=== PATIENT | female | born 1970 | race Caucasian/White ===

== ENCOUNTER 2021-02-03 08:11 | Outpatient (REF) | payer OTHER, SELFPAY ==
--- NOTE | ~2021-02-03 | MM_ITS ---
EXAMINATION: MM SCREENING DIGITAL BREAST TOMOSYNTHESIS, BILATERAL CLINICAL INFORMATION: Screening. Asymptomatic. The lifetime risk of breast cancer based on the Tyrer-Cuzick Model is 22%. COMPARISON: Mammography: 01/30/2020, 01/31/2018, 11/30/2016 TECHNIQUE: Digital breast tomosynthesis is performed in both the craniocaudal and mediolateral oblique views along with computer-aided detection (CAD). Synthesized 2D images are generated from the tomosynthesis. FINDINGS: The breasts are heterogeneously dense, which may obscure small masses (ACR BI-RADS breast composition Category c). There are no significant masses, abnormal calcifications, or other abnormalities. Breast tissue composition borders on average fibroglandular. Parenchymal pattern is similar to prior studies. No developing density. No architectural abnormality. There is a biopsy clip marker overlying stable nodule again seen posterior 11:30 left breast. MM/MM tomosynthesis screening BI IMPRESSION: No mammographic evidence of malignancy. ASSESSMENT: BI-RADS 2: Benign RECOMMENDATION: 1. Routine annual mammography screening. 2. The lifetime risk of breast cancer based on the Tyrer-Cuzick Model is 22%. Additional annual adjunct screening with breast MRI may be of benefit in women with a risk score of 20% or greater. This patient's information was entered into a reminder system with a target due date for their next mammogram.
== END 2021-02-03 08:12 | disposition home or self-care (01) ==
LOC: HO.MAMMO 08:11
PROVIDERS: PCP Internal Medicine Geriatric Medicine; Visit Provider Internal Medicine Geriatric Medicine
DX: Z12.31 Encounter for screening mammogram for malignant neoplasm of breast (principal)
CPT/HCPCS: 77063; 77067

== ENCOUNTER → 2021-07-21 13:43 | Outpatient (BNVA) | payer OTHER, SELFPAY | PROVIDERS: PCP Internal Medicine Geriatric Medicine; Referring Provider Internal Medicine Geriatric Medicine; Visit Provider Physician Assistant | DX: Z12.11 Encounter for screening for malignant neoplasm of colon (principal); L40.9 Psoriasis, unspecified | CPT/HCPCS: 99202 ==

== ENCOUNTER 2021-09-08 07:19 | Day surgery (SDC) | payer OTHER, SELFPAY ==
[2021-08-31 14:05] VITALS: BMI 31.8
--- NOTE | 2021-09-03 11:53 | HO.ANESPROP2 ---
Documented by User: Elana Chen NP 09/03/21 11:53 HPI - Anesthesia Eval Consult details Narrative: 51yo F for Colonoscopy PMFSH Active Problems Active Problems: All Active Problems (Updated 08/31/21 @ 14:05 by Vickie Perez, MARLA) Encounter for screening colonoscopy (Acute) Psoriasis (Acute) Poor historian (Acute) Past Medical History Medical History Psoriasis Family History Family History Sister Breast cancer Daughter Thyroid cancer Surgical History Surgical History No pertinent past surgical history Social History Social History Patient Tobacco Use Status: Tobacco use Unknown Advance Directives: No Advance Directives Information Provided: Yes Advance Directives on File: No Meds Allergies Allergy/AdvReac Type Severity Reaction Status Date / Time No Known Allergies Allergy Verified 07/21/21 13:46 Exam Exam Date and Time: September 03, 2021 1153 Height,Weight and Vital Signs: Height 5 ft 3 in Weight 81.647 kg Assessment and Plan Assessment Anesthesia Assessment: Chart Reviewed Documented by User: Angelica Walker MD 09/08/21 08:44 PMFSH Past Medical History Medical History Psoriasis Family History Family History Sister Breast cancer Daughter Thyroid cancer Surgical History Surgical History No pertinent past surgical history History of Problems with Anesthesia: No Social History Social History Patient Tobacco Use Status: Tobacco use Unknown Advance Directives: No Advance Directives Information Provided: Yes Advance Directives on File: No Meds Allergies Allergy/AdvReac Type Severity Reaction Status Date / Time No Known Allergies Allergy Verified 07/21/21 13:46 Exam Airway Mallampati Class: II TM Dist: >3cm Neck ROM: Full Loose/Missing/Broken Teeth: No Heart: RRR Lungs: CTA Assessment and Plan Assessment Anesthesia Assessment: Anesthesia Plan Discussed Final Anesthetic Review History of Problems with Anesthesia: No NPO: Yes ASA Class: II Final Preanesthetic Review: Meds/Allgs Chart Reviewed, Consent Obtained/Reviewed and Anes Risks/Benef Reviewed Patient Risk: Low Procedure Risk: Low Anesthetic Plan Anesthetic Plan: MAC: Disposition: Standard PACU
[2021-09-08 07:51] VITALS: BP 142/74; PULSE 62; RESP 18; TEMP 36.9; O2SAT 98
[2021-09-08 07:55] LABS: UPreg QC Valid YES; Urine Pregnancy NEGATIVE (NEGATIVE)
[2021-09-08] MEDS: Lactated Ringers 1,000 ML 100 ML IVCONT (08:12)
--- NOTE | 2021-09-08 08:27 | MHC.SHP ---
Pre-Procedural Eval Section A Date of Service: 09/08/21 Section B Chief Complaint: screening Relevant Family History (Specify if Yes): No Relevant Social History: None Present Medications: see Short Stay Collaborative assessment Medical History: Significant History (Psoriasis) History of Previous Operations: No relevant previous surgery Allergies: Allergies Allergy/AdvReac Type Severity Reaction Status Date / Time No Known Allergies Allergy Verified 07/21/21 13:46 Review of Systems Sugical H&P ROS: Negative: Constitution, Cardiovascular, Respiratory, Neurological, Psychiatric, Hem-Onc, Allergic/Immunologic, Gastrointestinal, Genitourinary, Musculoskeletal, Integumentary, Endocrine and Eyes/Ears/Nose/Throat Exam Surgical H&P Exam: Normal: HEENT, Normal: Heart, Normal: Lungs, Normal: Extremities, Normal: Abdomen, Normal: Skin and Normal: Neurological Plan Diagnosis/Plan: Unchanged I have reviewed the history and physical and performed a pertinent physical examination on my patient. No changes have occurred unless specified.
--- NOTE | 2021-09-08 08:28 | P.BOP_ITS ---
Brief Operative Note Date of Service: 09/08/21 Pre-op diagnosis: colon screening Post-op diagnosis: same Procedure: see op note Surgeon: Samuel Yi MD Anesthesia: MAC Was an Inner Diameter Grinder Tool used for this Procedure?: No Estimated blood loss (mL): 0 Condition: stable Disposition: PACU
--- NOTE | 2021-09-08 08:28 | W.PM.OPN ---
Operative Note Operative Note Date of Service: 09/08/21 Narrative: Operative Information Procedure Description: Colonoscopy Indication: screening colonoscopy Anesthesia: MAC COLONOSCOPY Instrument: Olympus variable stiffness pediatric scope 190L Colonoscopy Monitoring: Vital signs and clinical assessment, continuous EKG monitoring, Pulse oximetry, Carbon Dioxide monitoring and blood pressure monitoring were done throughout the procedure. Colon withdrawal time was 10 minutes. Procedure: The patient was placed in the left lateral decubitis position and pre-procedure medications were administered. After a digital rectal examination of the ano-rectum, the video colonoscope was inserted into the rectum and advanced through the colon to the cecum/TI. The colonoscope was slowly withdrawn in a retrograde panoramic fashion and the colon mucosa was carefully examined including a retroflexed view of the rectum. Findings and interventions are described below. Procedure Difficulty: moderate due to tight sigmoid Findings: Terminal Ileum-normal Cecum:normal Ascending Colon: normal Transverse Colon -normal Descending Colon:normal Sigmoid Colon: moderate diverticulosis with hypertrophied folds Rectum: Retroflexion with small internal hemorrhoids, grade I Anorectum - normal Colon preparation: [place] Bowel Preparation Scale Right colon; 1 Transverse colon: 2 Left colon; 1 (0 = Unprepared colon segment with mucosa not seen due to solid stool that cannot be cleared. 1 = Portion of mucosa of the colon segment seen, but other areas of the colon segment not well seen due to staining, residual stool and/or opaque liquid. 2 = Minor amount of residual staining, small fragments of stool and/or opaque liquid, but mucosa of colon segment seen well. 3 = Entire mucosa of colon segment seen well with no residual staining, small fragments of stool or opaque liquid) Impression and Post Procedure Diagnosis: poor prep internal hemorrhoids diverticulosis Plan: High fiber diet leaflet Avoid straining at stool, epsom salts and sitz bath, anusol supps or cream Repeat Colonoscopy in 1 year or earlier if clinically indicated review prep compliance and instructions,. Above findings were reviewed with the patient and relevant handouts were provided if indicated.
[2021-09-08 08:58] VITALS: BP 103/49; PULSE 59; RESP 20; TEMP 36.3; O2SAT 99
[2021-09-08 09:13] VITALS: BP 125/68; PULSE 58; RESP 16; TEMP 36.3; O2SAT 99
== END 2021-09-08 09:56 | disposition home or self-care (01) ==
PROVIDERS: Nurse Practitioner; PCP Internal Medicine Geriatric Medicine; Visit Provider Internal Medicine Gastroenterology
PROC: 0DJD8ZZ Inspection of Lower Intestinal Tract, Via Natural or Artificial Opening Endoscopic (ICD-10-PCS; CPT 45378; principal; 2021-09-08 08:30)
DX: Z12.11 Encounter for screening for malignant neoplasm of colon (principal); K57.30 Diverticulosis of large intestine without perforation or abscess without bleeding; K64.0 First degree hemorrhoids; L40.9 Psoriasis, unspecified; Z78.9 Other specified health status
CPT/HCPCS: 45378; 81025

== ENCOUNTER 2022-02-16 09:19 | Outpatient (REF) | payer OTHER, SELFPAY ==
--- NOTE | ~2022-02-16 | MM_ITS ---
EXAMINATION: MM SCREENING DIGITAL BREAST TOMOSYNTHESIS, BILATERAL CLINICAL INFORMATION: Screening. Asymptomatic. Family history breast cancer, sister. The lifetime risk of breast cancer based on the Tyrer-Cuzick Model is 15%. COMPARISON: Mammography: 02/03/2021, 01/30/2020, 01/31/2018 TECHNIQUE: Digital breast tomosynthesis is performed in both the craniocaudal and mediolateral oblique views along with computer-aided detection (CAD). Synthesized 2D images are generated from the tomosynthesis. FINDINGS: The breasts are heterogeneously dense, which may obscure small masses (ACR BI-RADS breast composition Category c). Breast tissue composition borders on average fibroglandular. Parenchymal pattern is similar to prior studies. No developing density. There are no significant masses, abnormal calcifications, or other abnormalities. There is a biopsy clip marker overlying small stable nodule posterior 11:30 left breast. MM/MM tomosynthesis screening BI IMPRESSION: No mammographic evidence of malignancy. ASSESSMENT: BI-RADS 2: Benign RECOMMENDATION: Routine annual mammography screening. This patient's information was entered into a reminder system with a target due date for their next mammogram.
== END 2022-02-16 09:20 | disposition home or self-care (01) ==
LOC: HO.MAMMO 09:19
PROVIDERS: Visit Provider Internal Medicine Geriatric Medicine
DX: Z12.31 Encounter for screening mammogram for malignant neoplasm of breast (principal)
CPT/HCPCS: 77063; 77067

== ENCOUNTER 2022-11-30 11:26 | Outpatient (REF) | payer OTHER, SELFPAY ==
[2022-11-30 14:20] LABS: Alanine Aminotransferase 22 U/L (0-31); Alkaline Phosphatase 86 U/L (39-117); Anion Gap 14 (12-20); Aspartate Amino Transferase 21 U/L (5-31); Bilirubin Total 0.8 mg/dL (0.0-1.0); Blood Urea Nitrogen 10 mg/dL (9-16); Calcium 9.5 mg/dL (8.4-10.2); Carbon Dioxide 24 mmol/L (22-29); Chloride 105 mmol/L (96-108); Estimated Glomerular Filt Rate > 60; Glucose Random 101 mg/dL (60-115); Potassium 3.9 mmol/L (3.3-5.1); Sodium 139 mmol/L (135-145); Total Protein 7.1 g/dL (6.5-8.0)
[2022-11-30 14:33] LABS: HBsAGNum1 0.37 S/CO (0.00-0.99); Hepatitis B Surface Antigen Negative (Negative)
[2022-12-02 12:53] LABS: HCV Log PCR <1.18 NOT DETECTED Log IU/mL (NOT DETECTED); HepC Viral Load <15 NOT DETECTED IU/mL (NOT DETECTED)
== END 2022-11-30 11:27 | disposition home or self-care (01) ==
LOC: HO.HHCL 11:26
PROVIDERS: Visit Provider Internal Medicine Geriatric Medicine
DX: R73.9 Hyperglycemia, unspecified (principal); L40.9 Psoriasis, unspecified; E78.00 Pure hypercholesterolemia, unspecified
CPT/HCPCS: 36415; 80053; 87340; 87522

== ENCOUNTER 2022-12-07 10:18 | Outpatient (REF) | payer OTHER, SELFPAY ==
[2022-12-07 11:34] LABS: MANUAL DIFF FLAG NO
[2022-12-07 11:46] LABS: Basophils Percent Auto 0.3 % (0-2); Eosinophils Absolute Auto 0.1 X10*3/uL (0.0-0.4); Eosinophils Percent Auto 1.6 % (0-4); Hematocrit 41.5 % (37.0-47.0); Hemoglobin 13.9 g/dl (12.0-16.0); Imm Gran Abs Auto 0.01 X10*3/uL (0.00-0.03); Imm Gran Pct Auto 0.2 % (0.0-0.4); Lymphocytes Absolute Auto 2.2 X10*3/uL (1.2-4.9); Lymphocytes Percent Auto 35.5 % (20-40); Mean Corpuscular HGB Conc 33.5 g/dl (31.0-35.0); Mean Corpuscular Hemoglobin 30.2 pg (27.0-33.0); Mean Corpuscular Volume 90.2 fL (80.0-98.0); Mean Platelet Volume 10.3 fL (9.4-12.3); Monocytes Absolute Auto 0.5 X10*3/uL (0.1-1.2); Monocytes Percent Auto 8.5 % (2-11); Neutrophils Absolute Auto 3.4 x10*3/uL (2.0-8.3); Neutrophils Percent Auto 53.9 % (45-73); Platelet Count 277 X10*3/uL (160-400); Red Cell Distribution Width 12.4 % (11.0-16.0); White Blood Count 6.3 X10*3/uL (4.8-10.8)
== END 2022-12-07 10:19 | disposition home or self-care (01) ==
LOC: HO.HHCL 10:18
PROVIDERS: Visit Provider Internal Medicine Geriatric Medicine
DX: R73.9 Hyperglycemia, unspecified (principal); L40.9 Psoriasis, unspecified; E78.00 Pure hypercholesterolemia, unspecified
CPT/HCPCS: 36415; 85025

== ENCOUNTER 2023-02-22 09:22 | Outpatient (REF) | payer OTHER, SELFPAY ==
--- NOTE | ~2023-02-22 | MM_ITS ---
EXAMINATION: MM SCREENING DIGITAL BREAST TOMOSYNTHESIS, BILATERAL CLINICAL INFORMATION: Screening. Asymptomatic. COMPARISON: Mammography: This study is compared with prior exams dating back to 2017. TECHNIQUE: Digital breast tomosynthesis is performed in both the craniocaudal and mediolateral oblique views along with computer-aided detection (CAD). Synthesized 2D images are generated from the tomosynthesis. FINDINGS: There are scattered areas of fibroglandular density (ACR BI-RADS breast composition Category b). There are no significant masses, abnormal calcifications, or other abnormalities. There is a tissue marker present in the left breast from prior benign percutaneous biopsy. MM/MM tomosynthesis screening BI IMPRESSION: No mammographic evidence of malignancy. ASSESSMENT: BI-RADS BI-RADS 2 - Benign Findings RECOMMENDATION: Routine annual mammography screening. 1 year F/U This examination should not preclude the clinical evaluation of a suspicious palpable abnormality. This patient's information was entered into a reminder system with a target due date for their next mammogram.
== END 2023-02-22 09:23 | disposition home or self-care (01) ==
LOC: HO.MAMMO 09:22
PROVIDERS: PCP Internal Medicine Geriatric Medicine; Visit Provider Internal Medicine Geriatric Medicine
DX: Z12.31 Encounter for screening mammogram for malignant neoplasm of breast (principal)
CPT/HCPCS: 77063; 77067

== ENCOUNTER → 2023-02-22 09:30 | Outpatient (BNV) | payer OTHER, SELFPAY | PROVIDERS: PCP Internal Medicine Geriatric Medicine; Visit Provider Radiology Diagnostic Radiology | DX: Z12.31 Encounter for screening mammogram for malignant neoplasm of breast (principal) | CPT/HCPCS: 77063; 77067 ==

== ENCOUNTER 2023-08-02 11:28 | Outpatient (REF) | payer OTHER, SELFPAY ==
[2023-08-02 13:14] LABS: MANUAL DIFF FLAG NO
[2023-08-02 13:36] LABS: Basophils Percent Auto 0.3 % (0-2); Eosinophils Absolute Auto 0.1 X10*3/uL (0.0-0.4); Eosinophils Percent Auto 1.7 % (0-4); Hematocrit 41.2 % (37.0-47.0); Hemoglobin 14.2 g/dl (12.0-16.0); Imm Gran Abs Auto 0.02 X10*3/uL (0.00-0.03); Imm Gran Pct Auto 0.3 % (0.0-0.4); Lymphocytes Absolute Auto 2.2 X10*3/uL (1.2-4.9); Lymphocytes Percent Auto 34.4 % (20-40); Mean Corpuscular HGB Conc 34.5 g/dl (31.0-35.0); Mean Corpuscular Hemoglobin 30.1 pg (27.0-33.0); Mean Corpuscular Volume 87.5 fL (80.0-98.0); Mean Platelet Volume 10.2 fL (9.4-12.3); Monocytes Absolute Auto 0.6 X10*3/uL (0.1-1.2); Monocytes Percent Auto 8.5 % (2-11); Neutrophils Absolute Auto 3.5 x10*3/uL (2.0-8.3); Neutrophils Percent Auto 54.8 % (45-73); Platelet Count 287 X10*3/uL (160-400); Red Blood Count 4.71 X10*6/uL (4.20-5.50); Red Cell Distribution Width 12.9 % (11.0-16.0); White Blood Count 6.5 X10*3/uL (4.8-10.8)
[2023-08-02 13:59] LABS: Alanine Aminotransferase 23 U/L (0-31); Albumin Level 4.1 g/dL (3.5-5.0); Alkaline Phosphatase 95 U/L (39-117); Anion Gap 10 (12-20); Aspartate Amino Transferase 18 U/L (5-31); Bilirubin Total 0.4 mg/dL (0.0-1.0); Blood Urea Nitrogen 9 mg/dL (9-16); Calcium 9.5 mg/dL (8.4-10.2); Carbon Dioxide 28 mmol/L (22-29); Chloride 105 mmol/L (96-108); Cholesterol 172 mg/dL (<200); Estimated Glomerular Filt Rate > 60; Glucose Random 122 mg/dL (60-115); HDL Cholesterol 48 mg/dL (>40); LDL Cholesterol Calculated 107 mg/dL (<100); Potassium 4.2 mmol/L (3.3-5.1); Sodium 139 mmol/L (135-145); Total Protein 7.5 g/dL (6.5-8.0); Triglycerides 86 mg/dL (<150)
[2023-08-02 15:00] LABS: Estimated Average Glucose 131 mg/dL; Hemoglobin A1c % 6.2 % (<6.0)
[2023-08-05 07:13] LABS: TS Negative Control Passed; TS Panel A 3; TS Panel B 0; TS Positive Control Passed; TSpotTB Negative (Negative)
== END 2023-08-02 11:29 | disposition home or self-care (01) ==
LOC: HO.HHCL 11:28
PROVIDERS: Visit Provider Internal Medicine Geriatric Medicine
DX: E11.9 Type 2 diabetes mellitus without complications (principal); L40.0 Psoriasis vulgaris; Z79.899 Other long term (current) drug therapy
CPT/HCPCS: 36415; 80053; 80061; 83036; 85025; 86481

== ENCOUNTER 2023-08-30 10:03 | Outpatient (AMB) | payer OTHER, SELFPAY ==
--- NOTE | 2023-08-30 10:09 | A.OFFVIS_ITS ---
Intake Vital Signs 08/30/23 10:12 Height 5 ft 3 in Weight 193 lb BMI 34.2 BP 140/100 H Blood Pressure Location Lt brachial Position Sitting Pulse 71 Intake Visit Reasons: Due for repeat colonoscopy Intake Note: Patient follow up for 2nd pre colonoscopy screening Patient denies any GI issues. 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 Testing Name: [facility] [place] Interpeter Accompanied by: Self / Same As Patient Allergies No Known Allergies Allergy (Verified 08/30/23 10:08) Medication List - Last Reconciled 08/30/23 by Chiquita Lance PA-C atorvastatin 20 mg PO BEDTIME bisacodyl (Dulcolax (bisacodyl)) 10 mg (2 x 5 mg) PO ONCE 1 day polyethylene glycol 3350 (Miralax) 238 grams PO ONCE 1 day HPI HPI Comments History of Present Illness Details 53-year-old female here to discuss repea t colonoscopy-last colonoscopy 09/10 inadequate prep recommended 1 year repeat colonoscopy due to inadequate prep- she admits to a late start She has no GI complaint Normal bowel pattern Appetite is good Reviewed previous colonoscopy= Impression and Post Procedure Diagnosis: poor prep internal hemorrhoids diverticulosis Plan: High fiber diet leaflet Avoid straining at stool, epsom salts and sitz bath, anusol supps or cream Repeat Colonoscopy in 1 year or earlier if clinically indicated review prep compliance and instructions,. Above findings were reviewed with the patient and relevant handouts were provided if indicated. Dictated By: Samuel Yi MD Signed By: <Electronically signed by Samuel Yi MD> 09/08/21 0857 [facility] Medical History (Updated 08/30/23 @ 10:46 by Chiquita Lance PA-C) Psoriasis Surgical History No pertinent past surgical history Family History Sister Breast cancer Daughter Thyroid cancer Social History Patient Tobacco Use Status: Tobacco use Unknown Review of Systems Const All systems reviewed & are unremarkable except as noted in HPI and below Card Denies chest pain and Denies dyspnea Resp Denies dyspnea GI Denies abdominal pain and Reports constipation Physical Exam Vital Signs: Last Vital Signs Pulse 71 08/30/23 10:12 BP 140/100 H 08/30/23 10:12 BMI result Body Mass Index 34.2 Const General: cooperative, healthy appearing, comfortable, no acute distress and anxious Orientation/consciousness: patient oriented x3 Limitations: language barrier Resp Effort & Inspection: normal respiratory effort and able to speak in complete sentences Auscultation: clear to auscultation bilaterally, no rales, no rhonchi and no wheezes Cardio Rate: regular rate Rhythm: regular rhythm Heart sounds: S1 normal heart sound present and S2 normal heart sound present GI Inspection: Yes obesity Palpation (GI): Soft to palpation and nontender Auscultation: normal bowel sounds Skin General skin exam: no rashes or lesions noted Neuro General: patient oriented x3 Extrem General: Yes full ROM Psych Appearance: grossly normal and well kempt Mental Status: mental status grossly normal Speech and movement: Normal speech and movement present and Clear speech present Affect: normal affect Attitude: cooperative Thought process: Normal thought process present Thought content: Normal thought content present Insight: Good insight present (Psych) Judgement: Good judgement present (Psych) Assessment & Plan Assessment & Plan (1) History of colonoscopy: Code(s): Z98.890 - Other specified postprocedural states Plan: repeat colonoscopy (2) Diverticulosis: Code(s): K57.90 - Diverticulosis of intestine, part unspecified, without perforation or abscess without bleeding Plan: HFD ER protocol (3) Chronic constipation: Code(s): K59.09 - Other constipation Plan: consistent bowel regimen HFD Plan Repeat colon- Yi MG prep miralax QD x 1 wk< prep day Medications: New bisacodyl (Dulcolax (bisacodyl)) Day before procedure @ 12 noon Take 4 tablets by mouth followed by large glass of water 20 mg (4 x 5 mg) PO ONCE 1 day PRN 4 tabs 0RF colonoscopy prep Z12.11 - Encounter for screening for malignant neoplasm of colon polyethylene glycol 3350 (Miralax) 17 grams PO DAILY 30 days 510 grams 2RF Refilled bisacodyl (Dulcolax (bisacodyl)) Take 2 tablets by mouth at 12:00pm the day before your procedure. 10 mg (2 x 5 mg) PO ONCE 1 day 2 tabs 0RF colonoscopy prep Z12.11 - Encounter for screening for malignant neoplasm of colon polyethylene glycol 3350 (Miralax) Take as directed by mouth the day before your procedure. 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
[2023-08-30 10:12] VITALS: BP 140/100; PULSE 71; BMI 34.2
== END 2023-08-30 11:06 | disposition home or self-care (01) ==
PROVIDERS: PCP Internal Medicine Geriatric Medicine; Visit Provider Physician Assistant
DX: Z98.890 Other specified postprocedural states (principal); K57.90 Diverticulosis of intestine, part unspecified, without perforation or abscess without bleeding; K59.09 Other constipation
CPT/HCPCS: 99213

== ENCOUNTER → 2023-08-30 10:03 | Outpatient (BNVA) | payer OTHER, SELFPAY | PROVIDERS: PCP Internal Medicine Geriatric Medicine; Visit Provider Physician Assistant | DX: K57.90 Diverticulosis of intestine, part unspecified, without perforation or abscess without bleeding (principal); K59.09 Other constipation; Z98.890 Other specified postprocedural states | CPT/HCPCS: 99212 ==

== ENCOUNTER 2024-01-03 09:44 | Day surgery (SDC) | payer OTHER, SELFPAY ==
--- NOTE | 2024-01-02 11:36 | HO.ANESPROP2 ---
Documented by User: Elana Chen NP 01/02/24 11:36 HPI - Anesthesia Eval Consult details Narrative: 53yo F for Colonoscopy PMFSH Active Problems Active Problems: All Active Problems Chronic constipation (Acute) Diverticulosis (Acute) History of colonoscopy (Acute) Poor historian (Acute) Psoriasis (Acute) Encounter for screening colonoscopy (Acute) Past Medical History Medical History Psoriasis Family History Family History Sister Breast cancer Daughter Thyroid cancer Surgical History Surgical History No pertinent past surgical history History of Problems with Anesthesia: No Social History Social History Patient Tobacco Use Status: Never used Tobacco Use of substances other than those prescribed or required for medical reasons: No Are you DNR?: No Advance Directives: No Advance Directives Information Provided: Yes Meds Allergies Allergy/AdvReac Type Severity Reaction Status Date / Time No Known Allergies Allergy Verified 08/30/23 10:08 Home Medications ?Medication ?Instructions ?Recorded ?Confirmed ?Last Taken ?Type atorvastatin 20 mg tablet 20 mg PO BEDTIME 08/30/23 08/30/23 Unknown History Assessment and Plan Assessment Anesthesia Assessment: Chart Reviewed Final Anesthetic Review History of Problems with Anesthesia: No Documented by User: Dinorah Hanks MD 01/03/24 10:55 PMFSH Past Medical History Medical History Psoriasis Family History Family History Sister Breast cancer Daughter Thyroid cancer Family history of problems with anesthesia: No Surgical History Surgical History No pertinent past surgical history Social History Social History Patient Tobacco Use Status: Never used Tobacco Use of substances other than those prescribed or required for medical reasons: No Are you DNR?: No Advance Directives: No Advance Directives Information Provided: Yes Meds Allergies Allergy/AdvReac Type Severity Reaction Status Date / Time No Known Allergies Allergy Verified 08/30/23 10:08 Home Medications ?Medication ?Instructions ?Recorded ?Confirmed ?Last Taken ?Type atorvastatin 20 mg tablet 20 mg PO BEDTIME 08/30/23 08/30/23 Unknown History Exam Airway Mallampati Class: II TM Dist: >3cm Neck ROM: Full Heart: rrr Lungs: cta Assessment and Plan Assessment Anesthesia Assessment: Anesthesia Plan Discussed Final Anesthetic Review Family History of Problems with Anesthesia: No NPO: Yes ASA Class: II Final Preanesthetic Review: No Changes in Pt Med Stat, Meds/Allgs Chart Reviewed and Consent Obtained/Reviewed Patient Risk: Low Procedure Risk: Low Anesthetic Plan Anesthetic Plan: MAC: Disposition: Standard PACU
[2024-01-03 10:18] VITALS: BMI 33.7
--- NOTE | 2024-01-03 10:19 | MHC.SHP ---
Pre-Procedural Eval Section A - 24 Hr Update-Section A only Date of Service: 01/03/24 Section B - Complete if H&P > 30 days Chief Complaint: Constipation, unspecified Relevant Family History (Specify if Yes): No Relevant Social History: None Present Medications: see Short Stay Collaborative assessment Medical History: Significant History (Psoriasis) History of Previous Operations: Relevant previous surgery/procedure and date(s) (colonoscopy) Allergies: Allergies Allergy/AdvReac Type Severity Reaction Status Date / Time No Known Allergies Allergy Verified 08/30/23 10:08 Review of Systems Sugical H&P ROS: Negative: Constitution, Cardiovascular, Respiratory, Neurological, Psychiatric, Hem-Onc, Allergic/Immunologic, Gastrointestinal, Genitourinary, Musculoskeletal, Integumentary, Endocrine and Eyes/Ears/Nose/Throat Exam Surgical H&P Exam: Normal: HEENT, Normal: Heart, Normal: Lungs, Normal: Extremities, Normal: Abdomen, Normal: Skin and Normal: Neurological Plan Diagnosis/Plan: Unchanged I have reviewed the history and physical and performed a pertinent physical examination on my patient. No changes have occurred unless specified. Time Spent With Patient Time: Total time managing care of this patient today ____ minutes.
[2024-01-03 10:20] VITALS: BP 145/80; PULSE 82; RESP 16; TEMP 37.2; O2SAT 96
[2024-01-03] MEDS: Lactated Ringers 1,000 ML 100 ML IVCONT (10:35)
--- NOTE | 2024-01-03 11:24 | HO.OPN-COLON ---
Colonoscopy Operative Note Operative Note Date of Service: 01/03/24 Narrative: Operative Information Procedure Description: Colonoscopy Indication: screening Anesthesia: MAC COLONOSCOPY Instrument: Olympus variable stiffness pediatric scope 190L Colonoscopy Monitoring: Vital signs and clinical assessment, continuous EKG monitoring, Pulse oximetry, Carbon Dioxide monitoring and blood pressure monitoring were done throughout the procedure. Colon withdrawal time was 10 minutes. Procedure: The patient was placed in the left lateral decubitis position and pre-procedure medications were administered. After a digital rectal examination of the ano-rectum, the video colonoscope was inserted into the rectum and advanced through the colon to the cecum/TI. The colonoscope was slowly withdrawn in a retrograde panoramic fashion and the colon mucosa was carefully examined including a retroflexed view of the rectum. Findings and interventions are described below. Procedure Difficulty: moderate, pressure applied Findings: Terminal Ileum-normal Cecum:normal right sided retroflexion- normal Ascending Colon: normal Transverse Colon -normal Descending Colon:normal Sigmoid Colon: moderate diverticulosis Rectum: Retroflexion with small internal hemorrhoids seen, grade I Anorectum - normal Intervention: none Colon preparation: [place] Bowel Preparation Scale Right colon; 2 Transverse colon: 2 Left colon; 2 (0 = Unprepared colon segment with mucosa not seen due to solid stool that cannot be cleared. 1 = Portion of mucosa of the colon segment seen, but other areas of the colon segment not well seen due to staining, residual stool and/or opaque liquid. 2 = Minor amount of residual staining, small fragments of stool and/or opaque liquid, but mucosa of colon segment seen well. 3 = Entire mucosa of colon segment seen well with no residual staining, small fragments of stool or opaque liquid) Impression and Post Procedure Diagnosis: diverticulosis colon polyps internal hemorrhoids Plan: High fiber diet leaflet Avoid straining at stool, epsom salts and sitz bath, anusol supps or cream Repeat Colonoscopy in 10 years or earlier if clinically indicated Above findings were reviewed with the patient and relevant handouts were provided if indicated.
[2024-01-03 11:28] VITALS: BP 121/77; PULSE 74; RESP 16; TEMP 36.3; O2SAT 97
[2024-01-03 11:43] VITALS: BP 139/80; PULSE 66; RESP 16; TEMP 36.3; O2SAT 99
== END 2024-01-03 12:17 | disposition home or self-care (01) ==
PROVIDERS: PCP Internal Medicine Geriatric Medicine; Visit Provider Internal Medicine Gastroenterology
PROC: 0DJD8ZZ Inspection of Lower Intestinal Tract, Via Natural or Artificial Opening Endoscopic (ICD-10-PCS; CPT 45378; principal; 2024-01-03 12:00)
DX: K59.09 Other constipation (principal); K57.30 Diverticulosis of large intestine without perforation or abscess without bleeding; K64.0 First degree hemorrhoids; L40.9 Psoriasis, unspecified; Z79.899 Other long term (current) drug therapy; Z98.890 Other specified postprocedural states
CPT/HCPCS: 45378; J2704

== ENCOUNTER → 2024-01-03 09:44 | Outpatient (BNV) | payer OTHER, SELFPAY | PROVIDERS: PCP Internal Medicine Geriatric Medicine; Visit Provider Internal Medicine Gastroenterology | DX: Z12.11 Encounter for screening for malignant neoplasm of colon (principal); K57.30 Diverticulosis of large intestine without perforation or abscess without bleeding; K64.0 First degree hemorrhoids | CPT/HCPCS: 45378 ==

== ENCOUNTER 2024-01-31 11:59 | Outpatient (REF) | payer OTHER, SELFPAY ==
[2024-01-31 13:45] LABS: MANUAL DIFF FLAG NO
[2024-01-31 14:05] LABS: Basophils Percent Auto 0.2 % (0-2); Eosinophils Absolute Auto 0.1 X10*3/uL (0.0-0.4); Eosinophils Percent Auto 1.8 % (0-4); Hematocrit 39.8 % (37.0-47.0); Hemoglobin 13.7 g/dl (12.0-16.0); Imm Gran Abs Auto 0.03 X10*3/uL (0.00-0.03); Imm Gran Pct Auto 0.5 % (0.0-0.4); Lymphocytes Absolute Auto 2.4 X10*3/uL (1.2-4.9); Lymphocytes Percent Auto 39.7 % (20-40); Mean Corpuscular HGB Conc 34.4 g/dl (31.0-35.0); Mean Corpuscular Volume 87.3 fL (80.0-98.0); Mean Platelet Volume 10.2 fL (9.4-12.3); Monocytes Absolute Auto 0.4 X10*3/uL (0.1-1.2); Monocytes Percent Auto 7.2 % (2-11); Neutrophils Absolute Auto 3.1 x10*3/uL (2.0-8.3); Neutrophils Percent Auto 50.6 % (45-73); Platelet Count 248 X10*3/uL (160-400); Red Blood Count 4.56 X10*6/uL (4.20-5.50); Red Cell Distribution Width 12.7 % (11.0-16.0); White Blood Count 6.1 X10*3/uL (4.8-10.8)
[2024-01-31 14:25] LABS: Estimated Average Glucose 146 mg/dL; Hemoglobin A1c % 6.7 % (<6.0)
[2024-01-31 14:26] LABS: Appearance Urine Clear; Color Urine Yellow; Glucose Urine UA Negative (Negative); Leukocyte Esterase Urine Negative (Negative); Nitrite Urine Negative (Negative); PH 5.5 (5.0-9.0); Urine Blood Negative (Negative); Urine Ketones Negative (Negative); Urine Protein Negative (Neg-Trace)
[2024-01-31 14:46] LABS: Alanine Aminotransferase 60 U/L (0-31); Albumin Level 4.3 g/dL (3.5-5.0); Alkaline Phosphatase 106 U/L (39-117); Anion Gap 13 (12-20); Aspartate Amino Transferase 28 U/L (5-31); Bilirubin Total 0.6 mg/dL (0.0-1.0); Blood Urea Nitrogen 10 mg/dL (9-16); Calcium 9.4 mg/dL (8.4-10.2); Carbon Dioxide 25 mmol/L (22-29); Chloride 107 mmol/L (96-108); Cholesterol 184 mg/dL (<200); Estimated Glomerular Filt Rate > 60; Glucose Random 134 mg/dL (60-115); HDL Cholesterol 42 mg/dL (>40); LDL Cholesterol Calculated 123 mg/dL (<100); Potassium 3.8 mmol/L (3.3-5.1); Sodium 141 mmol/L (135-145); Total Protein 7.5 g/dL (6.5-8.0); Triglycerides 96 mg/dL (<150)
[2024-01-31 14:48] LABS: Bacteria Urine Trace (None Seen); Hyaline Casts Urine 0-2 /LPF (0-2); RBC Urine 0-2 /HPF (0-2); WBC Urine 0-5 /HPF (0-5)
[2024-01-31 15:02] LABS: Creatinine Urine 179.64 mg/dL; Microalbum/Creatinine Ratio Ur 6.6 ug/mg cr (<30)
== END 2024-01-31 12:00 | disposition home or self-care (01) ==
LOC: HO.HHCL 11:59
PROVIDERS: Visit Provider Internal Medicine Geriatric Medicine
DX: R10.11 Right upper quadrant pain (principal); E11.9 Type 2 diabetes mellitus without complications; G89.29 Other chronic pain
CPT/HCPCS: 36415; 80053; 80061; 81001; 82043; 82570; 83036; 85025

== ENCOUNTER 2024-02-28 09:45 | Outpatient (REF) | payer OTHER, SELFPAY ==
--- NOTE | ~2024-02-28 | MM_ITS ---
EXAMINATION: MM SCREENING DIGITAL BREAST TOMOSYNTHESIS, BILATERAL CLINICAL INFORMATION: Screening. Asymptomatic. COMPARISON: Mammography: Comparison is made with available priors TECHNIQUE: Digital breast mammography with tomosynthesis is performed in both the craniocaudal and mediolateral oblique views along with computer-aided detection (CAD). FINDINGS: The breasts are heterogeneously dense, which may obscure small masses (ACR BI-RADS breast composition Category c). Right: There are no significant masses, abnormal calcifications, or other abnormalities. Left: Asymmetry lateral breast middle to posterior depth on CC view. No suspicious calcifications or other abnormal findings. Marker clip. MM/MM tomosynthesis screening BI IMPRESSION: Additional imaging is recommended ASSESSMENT: BI-RADS BI-RADS 0 - Incomplete: Needs additional Imaging. RECOMMENDATION: 1. Additional views of the left breast 2. Targeted ultrasound if warranted after review of the additional views. 3. Radiology department staff will contact the patient for additional imaging. Additional Imaging required This examination should not preclude the clinical evaluation of a suspicious palpable abnormality. This patient's information was entered into a reminder system with a target due date for their next mammogram. Electronically signed by: Nunu Mckinley DO 03/11/2024 05:57 PM EDT
== END 2024-02-28 09:46 | disposition home or self-care (01) ==
LOC: HO.MAMMO 09:45
PROVIDERS: PCP Internal Medicine Geriatric Medicine; Visit Provider Internal Medicine Geriatric Medicine
DX: Z12.31 Encounter for screening mammogram for malignant neoplasm of breast (principal)
CPT/HCPCS: 77063; 77067

== ENCOUNTER → 2024-02-28 09:45 | Outpatient (BNV) | payer OTHER, SELFPAY | PROVIDERS: PCP Internal Medicine Geriatric Medicine; Visit Provider Internal Medicine | DX: Z12.31 Encounter for screening mammogram for malignant neoplasm of breast (principal) | CPT/HCPCS: 77063; 77067 ==

== ENCOUNTER 2024-03-13 09:57 | Outpatient (REF) | payer OTHER, SELFPAY ==
--- NOTE | ~2024-03-13 | US_ITS ---
EXAMINATION: MM DIAGNOSTIC DIGITAL BREAST TOMOSYNTHESIS, left breast CLINICAL INFORMATION: Call back from screening for left breast asymmetry. COMPARISON: Mammography: Prior relevant comparison images and her system. TECHNIQUE: Digital breast tomosynthesis is performed in both the craniocaudal and mediolateral oblique views along with computer-aided detection (CAD). Synthesized 2D images are generated from the tomosynthesis. FINDINGS: There are scattered areas of fibroglandular density (ACR BI-RADS breast composition Category b). Previously seen asymmetry in the lateral left breast posterior depth on CC view partially effaces on additional imaging projections. There are no other significant masses, abnormal calcifications, or other abnormalities. Targeted color Doppler left breast ultrasound scanning from 1-5 o'clock demonstrates an incidental simple cyst at 2:00 1 cm from the nipple measuring 6 mm. There is incidental simple cyst at 2:00 10 cm from the nipple measuring up to 3 mm. Otherwise scanning from 1-5 o'clock demonstrates normal fibroglandular breast tissue. US/US breast LT limited mamm only IMPRESSION: Asymmetry lateral left breast posterior depth on CC view without sonographic correlate. Recommend 6 month follow-up left breast mammogram for further evaluation of stability. ASSESSMENT: BI-RADS BI-RADS 3 - Probably benign finding(s) - 6 month follow-up suggested RECOMMENDATION: 6 Month F/U Results were discussed with the patient at time of visit. This patient's information was entered into a reminder system with a target due date for their next mammogram. Electronically signed by: Nunu Mckinley DO 03/13/2024 01:24 PM EDT
== END 2024-03-13 09:58 | disposition home or self-care (01) ==
LOC: HO.MAMMO 09:57
PROVIDERS: PCP Internal Medicine Geriatric Medicine; Visit Provider Internal Medicine Geriatric Medicine
DX: N64.89 Other specified disorders of breast (principal)
CPT/HCPCS: 76642; 77061; 77065

== ENCOUNTER → 2024-03-13 10:00 | Outpatient (BNV) | payer OTHER, SELFPAY | PROVIDERS: PCP Internal Medicine Geriatric Medicine; Visit Provider Internal Medicine | DX: N63.21 Unspecified lump in the left breast, upper outer quadrant (principal) | CPT/HCPCS: 76642; 77061; 77065 ==

== ENCOUNTER 2024-04-02 11:32 | Outpatient (REF) | payer OTHER, SELFPAY ==
[2024-04-02 14:30] LABS: Anion Gap 13 (12-20); Blood Urea Nitrogen 11 mg/dL (9-16); Calcium 9.6 mg/dL (8.4-10.2); Carbon Dioxide 24 mmol/L (22-29); Chloride 106 mmol/L (96-108); Estimated Glomerular Filt Rate > 60; Glucose Random 132 mg/dL (60-115); Potassium 3.9 mmol/L (3.3-5.1); Sodium 139 mmol/L (135-145)
== END 2024-04-02 11:33 | disposition home or self-care (01) ==
LOC: HO.HHCL 11:32
PROVIDERS: Visit Provider Internal Medicine Geriatric Medicine
DX: R10.11 Right upper quadrant pain (principal); G89.29 Other chronic pain
CPT/HCPCS: 36415; 80048

== ENCOUNTER 2024-04-10 05:53 | Outpatient (REF) | payer OTHER, SELFPAY ==
--- NOTE | ~2024-04-10 | CT_ITS ---
EXAMINATION: CT ABDOMEN AND PELVIS WITH CONTRAST CLINICAL INFORMATION: Status post hysterectomy, complains of chronic right lower quadrant abdominal pain COMPARISON: None available. TECHNIQUE: Multidetector volumetric images were obtained from the superior aspect of the liver through the pubic symphysis following administration 85 mL of Omnipaque 350 intravenous contrast. Sagittal and coronal reformatted images were obtained on the technologist's workstation. Oral contrast: Yes, [address] examination was performed using dose optimization techniques as appropriate, variously including the following: *Automated exposure control *Adjustment of mA and/or kV according to patient size (this includes techniques or standardized protocols for targeted exams where dose is matched to indication/reason for exam; i.e. extremities or head) *Use of iterative reconstruction technique DLP: 574 mGy-cm FINDINGS: LUNG BASES: Bilateral lung bases are clear. LIVER: No focal lesion is seen in the liver. GALLBLADDER AND BILIARY TREE: Gallbladder appears unremarkable without calcified stones. Common bile duct is not dilated. SPLEEN: The spleen is normal in size without focal lesion. PANCREAS: The pancreas appears unremarkable. ADRENAL GLANDS: Adrenal glands are normal in size without focal lesion bilaterally. KIDNEYS: Bilateral kidneys are normal in size without focal lesion. BOWELS: There is normal filling of the small bowel loops with oral contrast down to the terminal ileum and cecum. RETROPERITONEUM: No abnormally enlarged retroperitoneal lymph nodes, mass or hematoma could be seen. BLOOD VESSELS: Abdominal aorta is normal in size with scattered atherosclerotic calcifications and smoothly patent. ABDOMINAL WALL: Abdominal subcutaneous tissue and muscle are intact. No evidence of ventral hernia. PERITONEUM: There was no ascites. There were no abdominal peritoneal inflammatory changes seen. No free peritoneal air was seen. No abnormally enlarged mesenteric lymph nodes are found. BONES: No fracture or dislocation. No focal bone lesion diagnostic of metastatic disease could be seen in the lumbar region. EXAMINATION: CT pelvis. FINDINGS: URINARY BLADDER: Urinary bladder fills normally with urine. BOWELS: There is no abnormal dilatation of the large and small bowel loops. Normal air-filled appendix is seen projecting medial and superior to the cecum. GENITAL ORGANS: Several right adnexal calcifications up to 1.1 cm in diameter are seen. Left ovarian cyst measuring 3.0 x 1.5 cm in size is present. The uterus is surgically absent. LYMPH NODES: No abnormally enlarged iliac or inguinal lymph nodes are seen. PERITONEUM: No inflammatory changes, ascites or free peritoneal air are found in the pelvis. BONES: No fracture or dislocation. No focal bone lesion diagnostic of metastatic disease could be seen in the pelvis. CT/CT abdomen pelvis w IV con IMPRESSION: 1. No evidence of acute appendicitis. 2. No intestinal or colonic obstruction or abdominal inflammation or pneumoperitoneum is seen. 3. Status post hysterectomy. 4. No pelvic mass lesion, abscess or lymphadenopathy is seen. 5. Left ovarian cyst is seen. Findings are overwhelmingly likely to represent a benign functional cyst and no followup imaging recommended. Fleischner guidelines were followed. Electronically signed by: Marnie Hester MD 05/01/2024 10:23 AM TERRENCE
[2024-04-10] MEDS: Barium Sulfate Oral (Vanilla) 450 ML ORAL.SUSP 900 ML PO (08:41)
[2024-04-10] MEDS: iohexoL 350 MG/ML 100 ML INFUS..BTL 85 ML IV (08:41)
== END 2024-04-10 05:54 | disposition home or self-care (01) ==
LOC: HO.CT 05:53
PROVIDERS: PCP Internal Medicine Geriatric Medicine; Visit Provider Internal Medicine Geriatric Medicine
DX: R10.11 Right upper quadrant pain (principal); G89.29 Other chronic pain
CPT/HCPCS: 74177; Q9967

== ENCOUNTER 2024-05-20 12:42 | Outpatient (REF) | payer OTHER, SELFPAY ==
[2024-05-20 13:10] LABS: MANUAL DIFF FLAG NO
[2024-05-20 13:21] LABS: Basophils Percent Auto 0.4 % (0-2); Eosinophils Absolute Auto 0.1 X10*3/uL (0.0-0.4); Eosinophils Percent Auto 1.4 % (0-4); Hematocrit 38.9 % (37.0-47.0); Hemoglobin 13.4 g/dl (12.0-16.0); Imm Gran Abs Auto 0.01 X10*3/uL (0.00-0.03); Imm Gran Pct Auto 0.2 % (0.0-0.4); Lymphocytes Absolute Auto 2.2 X10*3/uL (1.2-4.9); Lymphocytes Percent Auto 38.2 % (20-40); Mean Corpuscular HGB Conc 34.4 g/dl (31.0-35.0); Monocytes Absolute Auto 0.5 X10*3/uL (0.1-1.2); Monocytes Percent Auto 9.1 % (2-11); Neutrophils Absolute Auto 2.9 x10*3/uL (2.0-8.3); Neutrophils Percent Auto 50.7 % (45-73); Platelet Count 252 X10*3/uL (160-400); Red Blood Count 4.47 X10*6/uL (4.20-5.50); Red Cell Distribution Width 12.5 % (11.0-16.0); White Blood Count 5.6 X10*3/uL (4.8-10.8)
[2024-05-20 13:52] LABS: Alanine Aminotransferase 31 U/L (0-31); Albumin Level 4.2 g/dL (3.5-5.0); Alkaline Phosphatase 105 U/L (39-117); Anion Gap 13 (12-20); Aspartate Amino Transferase 25 U/L (5-31); Bilirubin Total 0.6 mg/dL (0.0-1.0); Blood Urea Nitrogen 12 mg/dL (9-16); Calcium 9.2 mg/dL (8.4-10.2); Carbon Dioxide 27 mmol/L (22-29); Chloride 106 mmol/L (96-108); Estimated Glomerular Filt Rate > 60; Glucose Random 120 mg/dL (60-115); Sodium 142 mmol/L (135-145); Total Protein 7.2 g/dL (6.5-8.0)
[2024-05-23 11:08] LABS: TS Negative Control Passed; TS Panel A 0; TS Panel B 1; TS Positive Control Passed; TSpotTB Negative (Negative)
== END 2024-05-20 12:43 | disposition home or self-care (01) ==
LOC: HO.HHCL 12:42
PROVIDERS: Visit Provider Dermatology
DX: L40.0 Psoriasis vulgaris (principal); Z79.899 Other long term (current) drug therapy
CPT/HCPCS: 36415; 80053; 85025; 86481

== ENCOUNTER 2024-09-18 12:26 | Outpatient (REF) | payer OTHER, SELFPAY ==
--- NOTE | ~2024-09-18 | MM_ITS ---
EXAMINATION: MM DIAGNOSTIC DIGITAL BREAST TOMOSYNTHESIS, LEFT CLINICAL INFORMATION: 6 month follow-up for left breast asymmetry on CC view without sonographic correlate. COMPARISON: Mammography: Priors on PACS. TECHNIQUE: Digital breast tomosynthesis is performed in both the craniocaudal and mediolateral oblique views along with computer-aided detection (CAD). Synthesized 2D images are generated from the tomosynthesis. FINDINGS: The breasts are heterogeneously dense, which may obscure small masses (ACR BI-RADS breast composition Category c). The previously seen asymmetry in the lateral left breast posterior depth on CC view without prior sonographic correlate is not significantly changed from priors. No suspicious calcifications or other abnormal findings. Marker clip. MM/MM tomosynthesis diagnostic LT IMPRESSION: Asymmetry lateral left breast posterior depth on CC view without sonographic correlate. Probably benign. Recommend six-month follow-up mammography when the patient is due for bilateral mammography. ASSESSMENT: BI-RADS BI-RADS 3 - Probably benign finding(s) - 6 month follow-up suggested RECOMMENDATION: 6 Month F/U Results were provided to the patient at time of visit by the technologist. This patient's information was entered into a reminder system with a target due date for their next mammogram. Electronically signed by: Nunu Mckinley DO 09/18/2024 12:52 PM EDT
--- OUTSIDE RECORDS SUMMARY | 2024-09-18 13:45 | XMS_ITS | Clinical Summary ---
Author Organization [employer] Address [address] [place] [address] 7 [place] [address] Care Team Providers [employer] Name Role Phone Name, Benoit ALMANZA Primary Care Provider [phone] Allergies No known active allergies Medications baclofen (Lioresal) 10 MG tabletIndication s:Low back pain at multiple sites TAKE 1 TABLET BY MOUTH TWICE A DAY 180 tablet 3 Active Tremfya 100 MG/ML injection 3 Active Blood Glucose Monitoring Suppl (FreeStyle Lite) device Inject 1 each under the skin Once daily. 1 each 3 Active fluticasone (Flonase) 50 MCG/ACT nasal spray Administer 2 sprays into each nostril in the morning. Shake gently. Before first use, prime pump. After use, clean tip and replace cap. 16 g 2 4 Active metFORMIN (Glucophage) 500 MG tabletIndication s:New onset type 2 diabetes mellitus (CMS/HCC) Take 0.5 tablets (250 mg) by mouth with breakfast and with evening meal. 30 tablet 11 4 01/31/20 25 Active atorvastatin (Lipitor) 20 MG tabletIndication s:High cholesterol TAKE 1 TABLET BY MOUTH EVERY DAY 90 tablet 1 4 Active Active Problems Problem Noted Date Diagnosed Date Venous insufficiency 03/01/2023 Prediabetes 03/01/2023 Immunosuppression 07/27/2022 Hepatitis C antibody positive in blood 3 Overview (07/27/2022): VL negative 2020 She does not have history of infection or treatment in the past Psoriasis 11/30/2016 History of hysterectomy 04/20/2016 Hypercholesterolemia 09/25/2015 Resolved Problems Problem Noted Date Diagnosed Date Resolved Date Acute upper respiratory infection 08/24/2016 03/01/2023 Encounters Date Type Department Care Team Description 09/18/2024 Orders Only [facility] [address] [place] [address] Jessica, MD Benoit 08/15/2024 Telephone [facility] [address] [place] [address] Constantin Guido MA october recalls from Last 3 Months Immunizations Name Administration Dates Next Due TD (adult), 2 Lf tetanus tox oid, preservative free, adsorbed 08/02/2017 Tdap 08/01/2007 Social History Tobacco Use Types Packs/Day Years Used Date Smoking Tobacco: Former Cigarettes Q uit: 2019 Smokeless Tobacco: Never Tobacco Cessation:Counseling Given: Not Answered Alcohol Use Standard Drinks/Week Comments Yes 0 (1 standard drink = 0.6 oz pur e alcohol) occassionally Depression Answer Date Recorded Patient Health Questionnaire-9 Score 0 11/30/2022 Housing Stability Answer Date Recorded What is your housing situation today? I have mary beth boudreaux 04/26/[address] you li ve. Do you have problems with any of the following? None of the above 04/26/2024 Food Insecurity Answer Date Recorded Within the past 12 months, y ou worried that your food would run out before you got money to buy more: Never True 04/26/2024 Within the past 12 months,th e food you bought just didn't last and you didn't have enough money to get more: Never True 10/2023 Transportation Answer Date Recorded In the past 12 months, has l ack of transportation kept you from medical appts, meetings, work or from getting things needed for daily living? No 04/26/2024 Utilities Answer Date Recorded In the past 12 months, has t he electric, gas, oil or water company threatened to shut off services in your home? No 04/26/2024 Depression Answer Date Recorded Patient Health Questionnaire-2 Score 0 11/30/2022 Internet Access Answer Date Recorded Internet Access Q1 Yes 04/26/2024 Internet Access Q2 Not on file 04/26/2024 Comments Unknown Sex and Gender Information Value Date Recorded Sex Assigned at Female 03/21/2022 10:29 AM EDT Legal Sex Female 10:29 AM EDT Gender Identity Choose not to disclose 10:29 AM EDT Sexual Orientation Choose not to disclose 2021 10:29 AM EDT Last Filed Vital Signs Vital Sign Reading Time Taken Comments Blood Pressure 139/79 01/31/2024 11:13 AM EDT Pulse 68 01/31/2024 11:13 AM EDT Temperature 36.2 ??C (97.1 ??F) 10/04/2023 10:47 AM E DT Respiratory Rate 12 01/31/2024 11:13 AM EDT Oxygen Saturation 95% 01/31/2024 11:13 AM EDT Inhaled Oxygen Concentration - - Weight 87 kg (191 lb 12.8 oz) 01/31/2024 11:13 A M EDT Height 161.8 cm (5' 3.72 ) 10/04/2023 10:47 AM E DT Body Mass Index 33.21 10/04/2023 10:47 AM EDT Plan of Treatment Upcoming Encounters Date Type Department Care Team (Late st Contact Info) Description 11/27/2024 10:45 AM EDT Office Visit [facility] MED[facility]INE [address] [place] [address] Name, MD Benoit [address] [place] [address] Health Maintenance Due Date Last Done Comments CT Colonography 1972 FIT DNA/Cologuard 1972 FIT 1972 FOBT 1972 HIV Screening 1972 Sigmoidoscopy 1972 COVID-19 Vaccine (#1) 1977 Alcohol/Substance Use Screening 1984 Family Planning (PISQ) 1987 Hepatitis B Vaccines (1 of 3 - 19+ 3-dose series) 1991 Pneumococcal Vaccine: 50+ Years (1 of 2 - PCV) 1991 Zoster Vaccines (1 of 2) 1991 Depression Screening 12/01/2023 11/30/2022, 12/01/19 Influenza Vaccine (#1) 2024 Diabetes: Hemoglobin A1C 07/30/2024 024, 01/31/2024, 08/02/2023, Additional history exists Pap Smear 12/08/2024 12/08/2021, 10/28/2020 Diabetes: Foot Exam 01/30/2025 01/31/2024, 01/31/2024, 01/31/2024, Additional history exists Diabetes: Urine Protein Screening 01/30/2025 01/31/2024 Lipid Panel 01/30/2025 01/31/2024, 07/20, 08/11/2022, Additional history exists Tobacco Screening 01/30/2025 01/31/2024 Diagnostic Breast Imaging 03/20/20252024, 03/13/2024, 02/22/2023 SDOH Screening 04/26/2025 04/26/2024 Eye Exam 04/15/2026 04/15/2024 Cervical Cancer Screening 12/08/2026 HPV/Cotest 12/08/2026 12/08/2021, 06/0 01/2021, 11/14/2018, Additional history exists DTaP/Tdap/Td Vaccines (3 - Td or Tdap) 08/03/2027 08/02/2017, 08/01/2007 Colonoscopy 01/02/2034 01/03/2024 Colorectal Cancer Screening 01/02/2034 RSV Patients and Patients Aged 60 years or older (1 - 1-dose 75+ series) 2047 Hepatitis C Screening Completed 11/30/2022, 021 HIB Vaccines Aged Out No longer eligi ble based on patient's age to complete this topic HPV Vaccines Aged Out No longer eligi ble based on patient's age to complete this topic Hepatitis A Vaccines Aged Out No long er eligible based on patient's age to complete this topic IPV Vaccines Aged Out No longer eligi ble based on patient's age to complete this topic Meningococcal Vaccine Aged Out No an yoshi eligible based on patient's age to complete this topic RSV under 20 months Aged Out No longe r eligible based on patient's age to complete this topic Rotavirus Vaccines Aged Out No longer eligible based on patient's age to complete this topic Procedures Procedure Name Priority Date/Time Associated Diagnosis Comments BI MAMMOGRAM DIAGNOSTIC TOMOSYNTHESIS LEFT Routine 09/18/2024 12:30 PM EDT ALBUMIN, RANDOM URINE W/CREATININE Routine 01/31/2024 12:08 PM EDT New onset type 2 diabetes mellitus (CMS/HCC) LIPID PANEL, STANDARD Routine 01/31/2024 12:04 PM EDT POCT GLYCATED HEMOGLOBIN, TOTAL Routine 01/31/2024 11:16 AM EDT New onset type 2 diabetes mellitus (CMS/HCC) HM COLONOSCOPY Routine 01/03/2024 HEPATITIS C VIRAL RNA, QUANTITATIVE, REAL-TIME PCR Routine 11/30/2022 11:33 AM EDT THINPREP IMAGING PAP AND HPV MRNA E6/E7 WITH REFLEX TO HPV 16,18/45 Routine 12/08/2021 3:31 PM EDT from Last 3 Months or Most Recently Relevant to Health Maintenance Results * BI Mammogram Diagnostic Tomosynthesis Left (09/18/2024 12:30 PM EDT) Anatomical Region Laterality Modality Breast Left Mammography 09/18/2024 12:3 0 PM EDT Narrative 09/18/2024 12:55 PM EDT ? [facility] ? [address] ?[place] [address] ?[phone] ? Mammography Report ? Signed ? Patient: Nithin Artemio,Whit M ?MR#: M ?? [id number] ? : 1970 ?Acct:[id number] ? Age/Sex: 54 / F ?ADM Date: 04/30/25 ? Loc: HO.MAMMO ? Attending Dr: Benoit Lopez MD ? Ordering Physician: Benoit Lopez MD ?Results: 3.6MProbab ?? ly Benign Finding - Short 6 M F/U Suggested ? Date of Service: 09/18/24 ?Follow Up: 6 Month F/U ? Procedure(s): MM tomosynthesis diagnostic LT ?? Accession Number(s): [id number] ? cc: Name,Benoit ALMANZA ? EXAMINATION: ?? MM DIAGNOSTIC DIGITAL BREAST TOMOSYNTHESIS, LEFT ? CLINICAL INFORMATION: ? 6 month follow-up for left breast asymmetry on CC view without ?? sonographic correlate. ? COMPARISON: ?? Mammography: Priors on PACS. ? TECHNIQUE: ?? Digital breast tomosynthesis is performed in both the craniocaudal and ?? mediolateral oblique views along with computer-aided detection (CAD). ?? Synthesized 2D images are generated from the tomosynthesis. ? FINDINGS: ?? The breasts are heterogeneously dense, which may obscure small masses ?? (ACR BI-RADS breast composition Category c). ?? The previously seen asymmetry in the lateral left breast posterior ?? depth on CC view without prior sonographic correlate is not ?? significantly changed from priors. ? No suspicious calcifications or other abnormal findings. ?? Marker clip. ? MM/MM tomosynthesis diagnostic LT ?? IMPRESSION: ?? Asymmetry lateral left breast posterior depth on CC view without ?? sonographic correlate. Probably benign. Recommend six-month follow-up ?? mammography when the patient is due for bilateral mammography. ? ASSESSMENT: ? BI-RADS BI-RADS 3 - Probably benign finding(s) - 6 month follow-up ?? suggested ? RECOMMENDATION: ?? 6 Month F/U ? Results were provided to the patient at time of visit by the ?? technologist. ? This patient's information was entered into a reminder system with a ?? target due date for their next mammogram. ? Electronically signed by: ??Nunu Mckinley DO ??09/18/2024 12:52 PM EDT ? Dictated By: ?Nunu Mckinley DO ? Signed By: ?<Electronically signed by Nunu Mckinley, DO in OV> ? 09/18/24 1252 ? DD/ 1230 ? TD/TT: 09/18/24 1245 ? Distribution Lead: ? Procedure Note Donotpérezinterpreter, Image - 09/18/2024 [facility] [address] [place] [address] Mammography Report Signed Patient: Whit Chapman MMR#: M [id number] : 1970Acct:[id number] Age/Sex: 54 / FADM Date: 09/18/24 Loc: HO.MAMMO Attending Dr: Benoit Lopez MD Ordering Physician: Benoit Lopez MDResults: 3.6MProbab ly Benign Finding - Short 6 M F/U Suggested Date of Service: 09/18/24Follow Up: 6 Month F/U Procedure(s): MM tomosynthesis diagnostic LT Accession Number(s): [id number] cc: Benoit Lopez MD EXAMINATION: MM DIAGNOSTIC DIGITAL BREAST TOMOSYNTHESIS, LEFT CLINICAL INFORMATION: 6 month follow-up for left breast asymmetry on CC view without sonographic correlate. COMPARISON: Mammography: Priors on PACS. TECHNIQUE: Digital breast tomosynthesis is performed in both the craniocaudal and mediolateral oblique views along with computer-aided detection (CAD). Synthesized 2D images are generated from the tomosynthesis. FINDINGS: The breasts are heterogeneously dense, which may obscure small masses (ACR BI-RADS breast composition Category c). The previously seen asymmetry in the lateral left breast posterior depth on CC view without prior sonographic correlate is not significantly changed from priors. No suspicious calcifications or other abnormal findings. Marker clip. MM/MM tomosynthesis diagnostic LT IMPRESSION: Asymmetry lateral left breast posterior depth on CC view without sonographic correlate. Probably benign. Recommend six-month follow-up mammography when the patient is due for bilateral mammography. ASSESSMENT: BI-RADS BI-RADS 3 - Probably benign finding(s) - 6 month follow-up suggested RECOMMENDATION: 6 Month F/U Results were provided to the patient at time of visit by the technologist. This patient's information was entered into a reminder system with a target due date for their next mammogram. Electronically signed by: Nunu Mckinley DO 09/18/2024 12:52 PM EDT RP Dictated By: Nunu Mckinley DO Signed By: <Electronically signed by Nunu Mckinley DO in OV> 09/18/24 1252 DD/ 1230 TD/TT: 09/18/24 1245 Distribution Lead: us Benoit Lopez MD IMG BI PROCEDURES Edited Result - Final * Albumin, Random Urine W/Creatinine (01/31/2024 12:08 PM EDT) Creatinine, Urine 179.64 mg/dL [facility] Microalbumin Urine 12.0 mg/L [facility] Microalbum Creatinine Ratio Ur 6.6 <30 ug/mg cr [facility] Comment:Albumin/Creatinine R atio Reference Ranges: Normal: < 30 ug/mg creatinine Microalbuminuria: 30 - 300 ug/mg creatinineClinical Albuminuria: > 300 ug/mg creatinine Urine (Urine, Random) 01/31/2024 12:08 PM EDT 01/31/2024 1:55 PM EDT us Benoit Lopez MD LAB URINE ORDERABLES Final Resul t [facility] [address] [place] [address] [phone] * (ABNORMAL) Lipid Panel, Standard (01/31/2024 12:04 PM EDT) Triglycerides 96 <150 mg/dL [facility] Comment:Desirable Triglyceri de: less than 150 mg/dLBorderline High Triglyceride 150-199 mg/dLHigh Triglyceride: 200-499 mg/dLVery High Triglyceride: greater than or equal to 5OO mg/dL Cholesterol 184 <200 mg/dL [facility] Comment:Desirable Cholestero l: less than 200 mg/dLBorderline High Cholesterol: 200-239 mg/dLHigh Cholesterol: greater than 239 mg/dL LDL Cholesterol Calculated 123(H) <100 mg/dL [facility] Comment:Desirable LDL: less than 100 mg/dLNear Optimal/Above Optimal LDL: 110- 129 mg/dLBorderline High LDL: 130-159 mg/dLHigh LDL: 160-189 mg/dLVery High LDL: greater than or equal to 190 mg/dL HDL Cholesterol 42 >40 mg/dL [facility] Comment:Desirable HDL: great er than 40 mg/dL Note: This HDL assay may give artificially low results in patients with liver disease. 01/31/2024 12:0 4 PM EDT 01/31/2024 1:40 PM EDT us Benoit Lopez MD LAB BLOOD ORDERABLES Final Resul t [facility] [address] [place] [phone] * (ABNORMAL) POCT HGB A1C (01/31/2024 11:16 AM EDT) Hemoglobin A1C 6.9(A) 4.0 - 6.0 % QC Media Lot # [id number] Lot# Expiration Date [id number] Blood 01/31/2024 11:1 6 AM EDT us Benoit Lopez MD POINT OF CARE TEST ENTER/EDIT OR DERABLES Final Result * Hm Colonoscopy (01/03/2024) Colonoscopy Normal Normal us Benoit Lopez MD HEALTH MAINTENANCE Final Result * Hepatitis C Viral RNA, Quantitative, Real-Time PCR (11/30/2022 11:33 AM EDT) Hepatitis C Viral Load <15 NOT DETECTED NOT DETECTED IU/mL [facility] HCV Log PCR <1.18 NOT DETECTED NOT DETECTED Log IU/mL [facility] Comment:This test was perfor med using Real-Time Polymerase ChainReaction.Reportable Range: 15 IU/mL to 100,000,000 IU/mL(1.18 Log IU/mL to 8.00 Log IU/mL).The analytical performance characteristics of thisassay have been determined by [employer].The modifications have not been cleared or approved bythe FDA. This assay has been validated pursuant to theCLIA regulations and is used for clinical purposes.For more information on this test, go to:http://education.avox/faq/NYI35a0(This link is being provided for informational/educational purposes only.)THIS TEST WAS PERFORMED AT:[facility] [place] [phone] MULLINS MD 11/30/2022 11:3 3 AM EDT 11/30/2022 1:19 PM EDT [facility] External Provider LAB BLO OD ORDERABLES Final Result [facility] [address] [place] [address] [phone] * THINPREP TIS PAP AND HPV mRNA E6/E7 WITH REFLEX TO HPV 16,18/45 (12/08/2021 3:31 PM EDT) Clinical Information: None given [facility] COMMENT SEE COMMENT [facility] Comment: EXPLANATORY NOTE: ? The Pap is a screening test for cervical cancer. It is ?? not a diagnostic test and is subject to false negative ?? and false positive results. It is most reliable when a ?? satisfactory sample, regularly obtained, is submitted ?? with relevant clinical findings and history, and when ?? the Pap result is evaluated along with historic and ?? current clinical information. ?? COMMENT: This Pap test has been evaluated with computer assisted technology. [facility] Cytotechnologis t: SEE COMMENT [facility] Comment: MAA, CT(ASCP) CT screening location: [address] ??[id number] HPV nRNA E6/E7 Not Detected Not Detected [facility] Comment: Methodology: Security Software Engineer-Mediated Amplification This assay detects E6/E7 viral messenger RNA (mRNA) from 14 high-risk HPV types (16,18,31,33,35,39,45,51,52,56,58,59,66,68). ? Cervical sources are required for HPV testing. If a vaginal source from a patient who has had a total hysterectomy with removal of cervix was ?? submitted, please contact the testing laboratory for alternative testing options. ?? For additional information, please refer to http://education.avox/faq/GWG250z7 (This link if provided for information/ educational purposes only.) Infection Shift in vaginal isiah suggestive of bacterial vaginosis. [facility] Interpretation/ Result: Negative for intraepithelial lesion or malignancy. [facility] LMP: NONE [facility]IV[facility] Prev. BX: NONE [facility] Prev. PAP: NONE [facility]IV[facility] Review Cytotechnologis t: SEE COMMENT [facility] Comment: MSM, CT(ASCP) CT screening location: [address] ??[id number] SOURCE: None given [facility] Statement Of Adequacy: SEE COMMENT [facility] Comment: Satisfactory for evaluation. Endocervical/transformation zone component absent. Age and/or menstrual status not provided 12/08/2021 3:31 PM EDT us Cheyenne Nguyen MD LAB PATHOLOGY ORDERAB LES Final Result [facility] [address] from Last 3 Months or Most Recently Relevant to Health Maintenance Insurance [facility] Care Teams [employer] Relationship Specialty Start Date End Date Name, MD Benoit [address] [place] [id number] PCP - General Family Medicine 05/22/18
--- OUTSIDE RECORDS SUMMARY | 2024-09-18 13:45 | XMS_ITS | Encounter Summary ---
Author Organization [employer] Address [address] [facility] 7 [place] [address] Care Team Providers Care Police Patrol Lieutenant Name Role Phone Name, Benoit ALMANZA Primary Care Provider [phone] Encounter Details Date Type Department Care Team ([facility] st Contact Info) Description 09/18/2024 Orders Only [facility] MEDICINE [address], [place] [phone] Name, MD Benoit [address] [place] [address] Social History Tobacco Use Types Packs/Day Years Used Date Smoking Tobacco: Former Cigarettes Q uit: 2019 Smokeless Tobacco: Never Alcohol Use Standard Drinks/Week Comments Yes 0 [...] not to disclose 2021 10:29 AM EDT documented as of this encounter Plan of Treatment Upcoming Encounters Date Type Department Care Team ([facility] st Contact Info) Description 11/27/2024 10:45 AM EDT Office Visit [facility] MEDICINE [address] [place] [phone] Name, MD Benoit [address] [place] [address] documented as of this encounter Procedures Procedure Name Priority Date/Time Associated Diagnosis Comments BI MAMMOGRAM DIAGNOSTIC TOMOSYNTHESIS LEFT Routine 09/18/2024 12:30 PM EDT documented in this encounter Results * BI Mammogram Diagnostic Tomosynthesis Left (09/18/2024 12:30 PM EDT) Anatomical Region Laterality Modality Breast Left Mammography 09/18/2024 12:3 0 PM EDT Narrative 09/18/2024 12:55 PM EDT ? [facility] ? [address] ?[place] [address] ?[phone] ? Mammography Report ? Signed ? Patient: Nithin Ulloa,Whit Martinez ?MR#: [id number] ?? [id number] ? : 1970 ?Acct:[id number] ? Age/Sex: 54 / F ?ADM Date: 04/30/25 ? Loc: HO.MAMMO ? Attending Dr: Benoit Lopez MD ? Ordering Physician: Benoit Lopez MD ?Results: 3.6MProbab ?? ly Benign Finding - Short 6 M F/U Suggested ? Date of Service: 09/18/24 ?Follow Up: 6 Month F/U ? Procedure(s): MM tomosynthesis diagnostic LT ?? Accession Number(s): [id number] ? cc: Jessica,Benoit ALMANZA ? EXAMINATION: ?? MM DIAGNOSTIC DIGITAL [...] DD/ 1230 ? TD/TT: 09/18/24 1245 ? Smash Hand: ? Procedure Note Donervininterpreter, Image - 09/18/2024 [facility] [address] [place] [address] Mammography Report Signed Patient: Whit Chapman MMR#: [id number] : 1970Acct:[id number] Age/Sex: 54 / FADM Date: 09/18/24 Loc: HO.MAMMO Attending Dr: Benoit Lopez MD Ordering Physician: Benoit Lopez MDResults: 3.6MProbab ly Benign Finding - Short 6 M F/U Suggested Date of Service: 09/18/24Follow Up: 6 Month F/U Procedure(s): MM tomosynthesis diagnostic Accession Number(s): [id number] cc: Benoit Lopez MD EXAMINATION: MM DIAGNOSTIC [...] Nunu Mckinley DO 09/18/2024 12:52 PM EDT Dictated By: Nunu Mckinley DO Signed By: <Electronically signed by Nunu Mckinley DO in OV> 09/18/24 1252 DD/ 1230 TD/TT: 09/18/24 1245 Smash Hand: us Benoit Name IMG BI PROCEDURES Edited Result - Final documented in this encounter Visit Diagnoses Not on filedocumented in this encounter Additional Health Concerns Assessment Noted Time PHQ-9 Depression Total Score: 0 12/01/19 23 10:46 AM EDT documented as of this encounter Care Teams Police Patrol Lieutenant Relationship Specialty Start Date End Date Name, MD Benoit [address] [place] [address] PCP - General Family Medicine 05/22/18 documented as of this encounter
--- OUTSIDE RECORDS SUMMARY | 2024-09-18 13:45 | XMS_ITS | Encounter Summary ---
Author Organization [employer] Address [address] [place] [address] 7 [place] [address] Care Team Providers Care Pediatric Audiologist Name Role Phone Name, Benoit ALMANZA Primary Care Provider [phone] Encounter Details Date Type Department Care Team (Late st Contact Info) Description 06/07/2022 Orders Only [facility] MEDICINE [address] [place] [phone] Anais Dia LPN Social History Tobacco Use Types Packs/Day Years Used Date Smoking Tobacco: Never Assessed Comments Unknown Sex and Gender Information Value [...] Description 11/27/2024 10:45 AM EDT Office Visit [facility] MEDICINE [address] [place] [address] Name, MD Benoit [address] [place] [address] documented as of this encounter Procedures Procedure Name Priority Date/Time Associated Diagnosis Comments HEPATITIS C VIRAL RNA, QUANTITATIVE, REAL-TIME PCR Routine 11/30/2022 11:33 AM EDT HEPATITIS B SURFACE ANTIGEN, EIA Routine 11/30/2022 11:33 AM EDT COMPREHENSIVE METABOLIC PANEL Routine 11/30/2022 11:33 AM EDT documented in this encounter Results * Hepatitis C Viral RNA, Quantitative, Real-Time PCR (11/30/2022 11:33 AM EDT) Pathologist [facility] Hepatitis C Viral Load <15 NOT DETECTED NOT DETECTED IU/mL [facility] HCV Log PCR <1.18 NOT DETECTED NOT DETECTED Log IU/mL [facility] Comment:This test was perfor med using Real-Time Polymerase ChainReaction.Reportable Range: 15 IU/mL to 100,000,000 IU/mL(1.18 Log IU/mL to 8.00 Log IU/mL).The analytical performance characteristics of thisassay have been determined by [employer].The modifications have not been cleared or approved bythe FDA. This assay has been validated pursuant to theCLIA regulations and is used for clinical purposes.For more information on this test, go to:http://education.Dovetail/faq/THX55c9(This link is being provided for informational/educational purposes only.)THIS TEST WAS PERFORMED AT:[facility] [place] [phone] MULLINS MD 11/30/2022 11:3 3 AM EDT 11/30/2022 1:19 PM EDT [facility] External Provider LAB BLO OD ORDERABLES Final Result [facility] [address] [place] [address] [phone] * Hepatitis B surface antigen, EIA (11/30/2022 11:33 AM EDT) Pathologist [facility] Hepatitis B Surface Ag Negative Negative [facility] 11/30/2022 11:3 3 AM EDT 11/30/2022 1:19 PM EDT [facility] External Provider LAB BLO OD ORDERABLES Final Result Performing Organization Address City/[facility]/ZIP Co de Phone Number [facility] [address] [place] [address] [phone] * Comprehensive Metabolic Panel (11/30/2022 11:33 AM EDT) Sodium 139 135 - 145 mmol/L [facility] Potassium 3.9 3.3 - 5.1 mmol/L [facility] Chloride 105 96 - 108 mmol/L [facility] Carbon Dioxide 24 22 - 29 mmol/L [facility] Anion Gap 14 12 - 20 [facility] Urea Nitrogen (BUN) 10 9 - 16 mg/dL [facility] Creatinine, Serum 0.65 0.5 - 1.4 mg/dL [facility] Estimated Glomerular Filt Rate >60 [facility] Comment:NOTE: For -Am erican individuals, multiply the result by 1.210.Chronic Kidney Disease: Estimated GFR < 60 mL/min/1.15m3Gonqof Kidney Disease: Estimated GFR < 15 mL/min/1.73m2 Glucose 101 60 - 115 mg/dL [facility] Calcium 9.5 8.4 - 10.2 mg/dL [facility] Bilirubin, Total 0.8 0.0 - 1.0 mg/dL [facility] Aspartate Amino Transferase 21 5 - 31 U/L [facility] Alanine Aminotransferase 22 0 - 31 U/L [facility] Total Protein 7.1 6.5 - 8.0 g/dL [facility] Albumin Level 4.0 3.5 - 5.0 g/dL [facility] Alkaline Phosphatase 86 39 - 117 U/L [facility] 11/30/2022 11:3 3 AM EDT 11/30/2022 1:19 PM EDT us [facility] External Provider LAB BLO OD ORDERABLES Final Result Performing Organization Address [facility]/ZIP Co de Phone Number [facility] [address] [place] [address] [phone] documented in this encounter Visit Diagnoses Not on filedocumented in this encounter Care Teams Pediatric Audiologist Relationship Specialty Start Date End Date Name, MD Benoit [address] [place] [address] PCP - General Family Medicine 05/22/18 documented as of this encounter
--- OUTSIDE RECORDS SUMMARY | 2024-09-18 13:45 | XMS_ITS | Encounter Summary ---
Author Organization [employer] Address [address] [facility] 7 [place] [address] Care Team Providers Care Hub Associate Name Role Phone Name, Benoit ALMANZA Primary Care Provider [phone] Encounter Details Date Type Department Care Team ([facility] Contact Info) Description 02/19/2024 Telephone [facility] MEDICINE [address] [place], [place] [phone] Name, MD Benoit [address] [place] [address] Social History Tobacco Use Types Packs/Day Years Used Date Smoking Tobacco: Former Cigarettes Q uit: 2019 Smokeless Tobacco: Never Alcohol Use Standard Drinks/Week Comments Yes 0 (1 standard drink = 0.6 oz pur e alcohol) occassionally Depression Answer Date Recorded Patient Health Questionnaire-9 Score 0 11/30/2022 Housing Stability Answer Date Recorded What is your housing situation today? I have mary beth boudreaux 03/16/[address] you li ve. Do you have problems with any of the following? None of the above 03/16/2023 Food Insecurity Answer Date Recorded Within the past 12 months, y ou worried that your food would run out before you got money to buy more: Never True 03/16/2023 Within the past 12 months,th e food you bought just didn't last and you didn't have enough money to get more: Never True Transportation Answer Date Recorded In the past 12 months, has l ack of transportation kept you from medical appts, meetings, work or from getting things needed for daily living? No 03/16/2023 Utilities Answer Date Recorded In the past 12 months, has t he electric, gas, oil or water company threatened to shut off services in your home? No 03/16/2023 Depression Answer Date Recorded Patient Health Questionnaire-2 Score 0 11/30/2022 Comments Unknown Sex and Gender Information Value Date Recorded Sex Assigned at Female 03/21/2022 10:29 AM EDT Legal Sex Female 10:29 AM EDT Gender Identity Choose not to disclose 10:29 AM EDT Sexual Orientation Choose not to disclose 2021 10:29 AM EDT documented as of this encounter Miscellaneous Notes * Telephone Encounter - Yamel Ziegler - 02/19/2024 1:48 PM EDT Tc from pt requesting a call back regarding some question on CT scan referral. documented in this encounter Plan of Treatment Upcoming Encounters Date Type Department Care Team (Late st Contact Info) Description 11/27/2024 10:45 AM EDT Office Visit [facility] MEDICINE [address] [place] [address] Name, MD Benoit [address] [place] [address] documented as of this encounter Visit Diagnoses Not on filedocumented in this encounter Additional Health Concerns Assessment Noted Time PHQ-9 Depression Total Score: 0 12/01/19 23 10:46 AM EDT documented as of this encounter Care Teams Hub Associate Relationship Specialty Start Date End Date Name, MD Benoit [address] [place] [address] PCP - General Family Medicine 05/22/18 documented as of this encounter
== END 2024-09-18 12:27 | disposition home or self-care (01) ==
LOC: HO.MAMMO 12:26
PROVIDERS: PCP Internal Medicine Geriatric Medicine; Visit Provider Internal Medicine Geriatric Medicine
DX: R92.2 Inconclusive mammogram (principal)
CPT/HCPCS: 77061; 77065

== ENCOUNTER → 2024-09-18 12:30 | Outpatient (BNV) | payer OTHER, SELFPAY | PROVIDERS: PCP Internal Medicine Geriatric Medicine; Visit Provider Internal Medicine | DX: R92.8 Other abnormal and inconclusive findings on diagnostic imaging of breast (principal); N64.89 Other specified disorders of breast | CPT/HCPCS: 77061; 77065 ==

== ENCOUNTER 2024-11-27 11:55 | Outpatient (REF) | payer OTHER, SELFPAY ==
--- OUTSIDE RECORDS SUMMARY | 2024-11-27 13:05 | XMS_ITS | Encounter Summary ---
Author Organization [employer] Address [address] [place] [address] [place] [address] Care Team Providers Care Lead Painter Name Role Phone Name, Benoit ALMANZA Primary Care Provider [phone] Encounter Details Date Type Department Care Team ([facility] Contact Info) Description 02/19/2024 Telephone [facility] MEDICINE [address] [place], [place] [phone] Name, MD Benoit [address] [place] [address] Social History Tobacco Use Types Packs/Day Years [...] Care Team (Late st Contact Info) Description 02/26/2025 10:45 AM EDT Office Visit [facility] MEDICINE [address] [place] [address] Name, MD Benoit [address] [place] [address] documented as of this encounter Visit Diagnoses Not on filedocumented in this encounter Additional Health Concerns Assessment Noted Time PHQ-9 Depression Total Score: 0 12/01/19 23 10:46 AM EDT documented as of this encounter Care Teams Lead Painter Relationship Specialty Start Date End Date Name, MD Benoit [address] [place] [address] PCP - General Family Medicine 05/22/18 documented as of this encounter
[2024-11-27 16:45] LABS: Alanine Aminotransferase 30 U/L (0-31); Albumin Level 4.5 g/dL (3.5-5.0); Alkaline Phosphatase 114 U/L (39-117); Anion Gap 10 (12-20); Aspartate Amino Transferase 29 U/L (5-31); Blood Urea Nitrogen 8 mg/dL (9-16); Calcium 9.3 mg/dL (8.4-10.2); Carbon Dioxide 27 mmol/L (22-29); Chloride 106 mmol/L (96-108); Cholesterol 169 mg/dL (<200); Estimated Glomerular Filt Rate > 60; HDL Cholesterol 35 mg/dL (>40); Potassium 4.0 mmol/L (3.3-5.1); Sodium 139 mmol/L (135-145); Total Protein 7.6 g/dL (6.5-8.0); Triglycerides 104 mg/dL (<150)
[2024-12-02 00:13] LABS: Quantiferon TB Gold Plus 1 NEGATIVE (NEGATIVE); TB Test (QFT) Mitogen -Nil >10.00 IU/mL; TB Test (QFT) Nil 0.04 IU/mL; TB Test (QFT) Plus TB1 -Nil 0.01 IU/mL; TB Test (QFT) Plus TB2 -Nil 0.00 IU/mL
== END 2024-11-27 11:56 | disposition home or self-care (01) ==
LOC: HO.HHCL 11:55
PROVIDERS: PCP Internal Medicine Geriatric Medicine; Referring Provider Dermatology; Visit Provider Internal Medicine Geriatric Medicine
DX: R73.03 Prediabetes (principal); E78.00 Pure hypercholesterolemia, unspecified; L40.0 Psoriasis vulgaris; Z11.1 Encounter for screening for respiratory tuberculosis; Z79.899 Other long term (current) drug therapy
CPT/HCPCS: 36415; 80053; 80061; 86480

== ENCOUNTER 2025-02-26 11:37 | Outpatient (REF) | payer OTHER, SELFPAY ==
[2025-02-26 13:57] LABS: Anion Gap 10 (12-20); Blood Urea Nitrogen 14 mg/dL (9-16); Calcium 9.7 mg/dL (8.4-10.2); Carbon Dioxide 29 mmol/L (22-29); Chloride 106 mmol/L (96-108); Estimated Glomerular Filt Rate > 60; Potassium 3.8 mmol/L (3.3-5.1); Sodium 141 mmol/L (135-145)
[2025-02-26 14:37] LABS: Microalbum/Creatinine Ratio Ur 4.3 ug/mg cr (<30)
== END 2025-02-26 11:38 | disposition home or self-care (01) ==
LOC: HO.HHCL 11:37
PROVIDERS: PCP Internal Medicine Geriatric Medicine; Visit Provider Internal Medicine Geriatric Medicine
DX: E11.9 Type 2 diabetes mellitus without complications (principal)
CPT/HCPCS: 36415; 80048; 82043; 82570

== ENCOUNTER 2025-03-19 10:56 | Outpatient (REF) | payer OTHER, SELFPAY ==
--- OUTSIDE RECORDS SUMMARY | 2025-03-12 10:30 | XMS_ITS | Encounter Summary ---
Author Organization [employer] Address [address] [place] [address] [place] [address] Care Team Providers Care Painter Drum Name Role Phone Name, Benoit ALMANZA Primary Care Provider [phone] Reason for Visit * Reason Comments Blood Pressure Check Encounter Details Date Type Department Care Team ([facility] st Contact Info) Description 03/12/2025 10:30 AM EDT Telemedicine [facility] MEDICINE [address] [place], [place] [phone] Vilma Nunez, MARLA [address] [place], [place] [phone] Hypertension, unspecified type (Primary Dx); Elevated blood pressure reading without diagnosis of hypertension Social History Tobacco Use Types Packs/Day Years Used Date Smoking Tobacco: Former Cigarettes Q uit: 2019 Smokeless Tobacco: Never Alcohol Use Standard Drinks/Week Comments Yes 0 (1 standard drink = 0.6 oz pur e alcohol) occassionally Depression Answer Date Recorded Patient Health Questionnaire-9 Score 1 11/27/2024 Patient Health Questionnaire-9 Score 1 11/27/2024 Last PHQ-9: Questionnaire Data Not on file 0 11/27/2024 Housing Stability Answer Date Recorded What is [...] Date Recorded Patient Health Questionnaire-2 Score 0 11/27/2024 Internet Access Answer Date Recorded Internet Access Q1 Yes 04/26/2024 Internet Access Q2 Not on file 04/26/2024 Comments No Sex and Gender Information Value Date Recorded Sex Assigned at Female 03/21/2022 10:29 AM EDT Legal Sex Female 10:29 AM EDT Gender Identity Choose not to disclose 10:29 AM EDT Sexual Orientation Choose not to disclose 2021 10:29 AM EDT documented as of this encounter Progress Notes * Vilma Nunez, MARLA - 03/12/2025 10:30 AM EDT S: T/C to pt via S Inventory Control/Shipping Receiving Simon #[id number] for nurse visit for BP Check. Pt started with strength and conditioning coach then declined strength and conditioning coach. Pt stated strength and conditioning coach was not getting the correct numbers. Pt reports that she is active in her work at [employer] but does not exercise. Pt reports that she normally eats rice, beans, chicken, steak and sometimes eats fries at [employer]. Pt denies smoking. Reports that she drinks socially only 2-3 drinks at at time about every 3 weeks. Pt denies headache, chest pain, sob, dizziness and visual changes today. O: Pt not currently prescribed medication for hypertension. A: Pt reports the following home blood pressure readings since 02/26/25: 143/85 P 75; 131/87 P 78; 138/92 P 78; 135/87 P 69; 139/90 P 71; 137/89 P 73; 134/92 P 76; 141/90 P 74; 145/90 P 69; 134/93 P 79; 139/87 P 77; 141/91 P 70; 154/95 P 63; 138/88 P 72; 140/89; 141/90 P 74; 135/87 P 69; 134/92 P 76; 142/89 P 88; 135/92 P 73; 135/93 P 75; 134/92 P 74; 135/88 P 65; 142/93 P 72 and 148/89 P 55. P: Pt encouraged to adhere to low sodium diet. Pt encouraged to increase amount and frequency of exercise. Advised nurse note will be sent to pcp and pt will be advised of any changes. * Benoit Alfredo MD - 03/12/2025 10:30 AM EDT I will send low dose losartan to her meds Keep checking BP at home Check BMP next week Photo Finish Photographer her another televisit for BP check in about a week documented in this encounter Miscellaneous Notes * Addendum Note - Benoit Alfredo MD - 03/12/2025 10:30 AM EDTAddended by: BENOIT ALFREDO on: 03/17/2025 06:56 AM Modules accepted: Orders documented in this encounter Plan of Treatment Upcoming Encounters Date Type Department Care Team (Late st Contact Info) Description 03/26/2025 11:00 AM EST Telemedicine [facility] MEDICINE [address] [place] [address] Scheduled Orders Name Type Priority Associated Diagnoses Orde r Schedule Basic Metabolic Panel Lab Routine Hypertension, unspecified type Expected: 03/17/2025 (Approximate), Expires: 03/17/2026 documented as of this encounter Visit Diagnoses Diagnosis Hypertension, unspecified type- Primary Elevated blood pressure reading without diagnosis of hypertension documented in this encounter Additional Health Concerns Assessment Noted Time PHQ-9 Depression Total Score: 1 11/28/19 25 11:38 AM EDT documented as of this encounter Care Teams Painter Drum Relationship Specialty Start Date End Date Benoit Alfredo MD [address] [place] [address] PCP - General Family Medicine 05/22/18 documented as of this encounter
--- NOTE | ~2025-03-19 | MM_ITS ---
EXAMINATION: MM DIAGNOSTIC DIGITAL BREAST TOMOSYNTHESIS, BILATERAL CLINICAL INFORMATION: 1 year follow-up for asymmetry in the lateral left breast posterior depth on CC view without sonographic correlate. COMPARISON: Mammography: Comparison is made with relevant prior exams. TECHNIQUE: Digital breast mammography with tomosynthesis is performed in both the craniocaudal and mediolateral oblique views along with computer-aided detection (CAD). FINDINGS: The breasts are heterogeneously dense, which may obscure small masses. Left: Asymmetry in the lateral left breast posterior depth on CC view is less conspicuous compared with prior. No prior sonographic correlate was seen. Left marker clip. No suspicious calcifications or other abnormal findings. Right: No suspicious masses calcifications or other abnormal findings. Results are provided to the patient at time of visit by the technologist. MM/MM tomosynthesis diagnostic BI IMPRESSION: Right: Negative. Left: Asymmetry lateral left breast posterior depth on CC view less conspicuous compared with priors and without prior sonographic correlate. Recommend follow-up diagnostic mammogram in one year to demonstrate 2 years of stability. ASSESSMENT: BI-RADS Category 3: Probably benign RECOMMENDATION: 12 month diagnostic follow up This patient's information was entered into a reminder system with a target due date for their next mammogram. Electronically signed by: Nunu Mckinley DO 03/19/2025 12:29 PM EDT
--- OUTSIDE RECORDS SUMMARY | 2025-03-19 13:49 | XMS_ITS | Encounter Summary ---
Author Organization [employer] Address [address] [place] [address] [place] [address] Care Team Providers Care Animal Technician Name Role Phone Name, Benoit ALMANZA Primary Care Provider [phone] Encounter Details Date Type Department Care Team ([facility] Contact Info) Description 02/19/2024 Telephone [facility] MEDICINE [address] [place], [place] [phone] Name, MD Benoit [address] [place] [address] Social History Tobacco Use Types Packs/Day Years [...] Info) Description 03/26/2025 11:00 AM EST Telemedicine [facility] MEDICINE [address] [place] [address] documented as of this encounter Visit Diagnoses Not on filedocumented in this encounter Additional Health Concerns Assessment Noted Time PHQ-9 Depression Total Score: 0 12/01/19 23 10:46 AM EDT documented as of this encounter Care Teams Animal Technician Relationship Specialty Start Date End Date Name, MD Benoit [address] [place] [address] PCP - General Family Medicine 05/22/18 documented as of this encounter
--- OUTSIDE RECORDS SUMMARY | 2025-03-19 13:49 | XMS_ITS | Encounter Summary ---
Author Organization [employer] Address [address] [place] [address] [place] [address] Care Team Providers Care Ciaio Counter Molder Name Role Phone Name, Benoit ALMANZA Primary Care Provider [phone] Encounter Details Date Type Department Care Team (Late st Contact Info) Description 06/07/2022 Orders Only [facility] MEDICINE [address] [place] [phone] Anais Dia LPN Social History Tobacco Use [...] Info) Description 03/26/2025 11:00 AM EST Telemedicine [facility] MEDICINE [address] [place] [phone] documented as of this encounter Procedures Procedure [...] Load <15 NOT DETECTED NOT DETECTED IU/mL [facility] HCV Log PCR <1.18 NOT DETECTED NOT DETECTED Log IU/mL [facility] Comment:This test was perfor med using Real-Time Polymerase ChainReaction.Reportable Range: 15 IU/mL to 100,000,000 IU/mL(1.18 Log IU/mL to 8.00 Log IU/mL).The analytical performance characteristics of thisassay have been determined by [employer].The modifications have not been cleared or approved bythe FDA. This assay has been validated pursuant to theCLIA regulations and is used for clinical purposes.For more information on this test, go to:http://education.[employer].com/faq/NEF83s3(This link is being provided for informational/educational purposes only.)THIS TEST WAS PERFORMED AT:[employer] [place] [phone] MULLINS MD 11/30/2022 11:3 3 AM EDT 11/30/2022 1:19 PM EDT [facility] External Provider LAB BLO OD ORDERABLES Final Result Performing Organization Address [facility]/ZIP Co de Phone Number [facility] [address] [place] [phone] * Hepatitis B surface antigen, EIA (11/30/2022 11:33 AM EDT) Hepatitis B Surface Ag Negative Negative [facility] 11/30/2022 11:3 3 AM EDT 11/30/2022 1:19 PM EDT [facility] External Provider LAB BLO OD ORDERABLES Final Result Performing Organization Address [facility]/ZIP Co de Phone Number [facility] [address] [place] [phone] * Comprehensive Metabolic Panel (11/30/2022 11:33 AM EDT) Sodium 139 135 - 145 mmol/L [facility] Potassium 3.9 3.3 - 5.1 mmol/L [facility] Chloride 105 96 - 108 mmol/L [facility] Carbon Dioxide 24 22 - 29 mmol/L [facility] Anion Gap 14 12 - 20 [facility] Urea Nitrogen (BUN) 10 9 - 16 mg/dL [facility] Creatinine, Serum 0.65 0.5 - 1.4 mg/dL [facility] Estimated Glomerular Filt Rate >60 [facility] Comment:NOTE: For -Am erican individuals, multiply the result by 1.210.Chronic Kidney Disease: Estimated GFR < 60 mL/min/1.40u8Yfunsf Kidney Disease: Estimated GFR < 15 mL/min/1.73m2 Glucose 101 60 - 115 mg/dL [facility] Calcium 9.5 8.4 - 10.2 mg/dL [facility] Bilirubin, Total 0.8 0.0 - 1.0 mg/dL [facility] Aspartate Amino Transferase 21 5 - 31 U/L [facility] Alanine Aminotransferase 22 0 - 31 U/L [facility] Total Protein 7.1 6.5 - 8.0 g/dL [facility] Albumin Level 4.0 3.5 - 5.0 g/dL [facility] Alkaline Phosphatase 86 39 - 117 U/L [facility] 11/30/2022 11:3 3 AM EDT 11/30/2022 1:19 PM EDT us [facility] External Provider LAB BLO OD ORDERABLES Final Result [facility] [address] [place] [address] [phone] documented in this encounter Visit Diagnoses Not on filedocumented in this encounter Care Teams Ciaio Counter Molder Relationship Specialty Start Date End Date Name, MD Benoit [address] [place] [address] PCP - General Family Medicine 05/22/18 documented as of this encounter
--- OUTSIDE RECORDS SUMMARY | 2025-03-19 13:49 | XMS_ITS | Encounter Summary ---
Author Organization [employer] Address [address] [place] [address] 7 [place] [address] Care Team Providers Care Medical Service Representative Name Role Phone Name, Benoit ALMANZA Primary Care Provider [phone] Encounter Details Date Type Department Care Team ([facility] Contact Info) Description 03/17/[address] [facility] MEDICINE [address] [place], [place] [id number] Name, MD Benoit [address] [place] [address] Social History Tobacco Use Types Packs/Day Years [...] encounter Miscellaneous Notes * Telephone Encounter - Vilma Nunez RN - 03/18/2025 2:47 PM EDT T/C placed to pt. Advised of PCP recommendation re: addition of losartan and POC. Pt reports agreement with plan and agrees to f/u televisit for blood pressure with Blue team nurses 03/26/25. * Telephone Encounter - Jackie Vasquez RN - 03/18/2025 2:27 PM EDT TC placed to pt via [employer] Professor (#[id number]) to inform and advise of below PCP message. No answer, LVM to call office back and ask to speak to the blue team nurses. Benoit Lopez MD at 03/12/2025 10:30 AM Status: Signed I will send low dose losartan to her meds Keep checking BP at home Check BMP next week Monotypist her another televisit for BP check in about a week * Telephone Encounter - Benoit Monaco - 03/18/2025 2:18 PM EDT Tc from pt returning call back regarding prior message. Contact pt at [phone] * Telephone Encounter - Vilma Nunez RN - 03/17/2025 4:29 PM EDT Benoit Lopez MD at 03/12/2025 10:30 AM Status: Signed I will send low dose losartan to her meds Keep checking BP at home Check BMP next week Monotypist her another televisit for BP check in about a week T/C to pt via [employer] Professor #[id number] to advise of message from pcp re: new medication and poc. No answer x 2 attempts, v/m left to return call to [place] team nurses. documented in this encounter Plan of Treatment Upcoming Encounters Date Type Department Care Team (Late st Contact Info) Description 03/26/2025 11:00 AM EST Telemedicine [facility] MEDICINE [address] [place] [address] documented as of this encounter Visit Diagnoses Not on filedocumented in this encounter Additional Health Concerns Assessment Noted Time PHQ-9 Depression Total Score: 1 11/28/19 25 11:38 AM EDT documented as of this encounter Care Teams Medical Service Representative Relationship Specialty Start Date End Date Benoit Lopez MD [address] [place] [address] PCP - General Family Medicine 05/22/18 documented as of this encounter
--- OUTSIDE RECORDS SUMMARY | 2025-03-19 13:49 | XMS_ITS | Encounter Summary ---
Author Organization [employer] Address [address] [facility] 7 [place] [address] Care Team Providers Care Engagement Lead Name Role Phone Name, Benoit ALMANZA Primary Care Provider Encounter Details Date Type Department Care Team ([facility] Contact Info) Description 03/19/2025 Orders Only [facility] MEDICINE [address] [place], [place] [phone] Name, MD Benoit [address] [place] [address] Social History Tobacco Use Types Packs/Day Years [...] Info) Description 03/26/2025 11:00 AM EST Telemedicine [facility] MEDICINE [address] [facility] [place] [address] documented as of this encounter Procedures Procedure Name Priority Date/Time Associated Diagnosis Comments BI MAMMOGRAM DIAGNOSTIC TOMOSYNTHESIS BILATERAL Routine 03/19/2025 11:10 AM EDT documented in this encounter Results * BI Mammogram Diagnostic Tomosynthesis Bilateral (03/19/2025 11:10 AM EDT) Anatomical Region Laterality Modality Breast Bilateral Mammography 03/19/2025 11:1 0 AM EDT Narrative 03/19/2025 12:32 PM EDT [facility] [address] [place] [address] Mammography Report Signed Patient: Whit Chapman MR#: [id number] : 1970 Acct:[id number] Age/Sex: 54 / F ADM Date: 03/19/25 Loc: [facility] Attending Dr: Benoit Lopez MD Ordering Physician: Benoit Lopez MD Results: 3Probably Benign Date of Service: 03/19/25 Follow Up: 12 month diagnos tic follow up Procedure(s): MM tomosynthesis diagnostic BI Accession Number(s): [id number] cc: Name,Benoit ALMANZA Reason For Exam: LT BR 6MO F/U DENSITIES YEARLY EXAMINATION: MM DIAGNOSTIC DIGITAL BREAST TOMOSYNTHESIS, BILATERAL CLINICAL INFORMATION: 1 year follow-up for asymmetry in the lateral left breast posterior depth on CC view without sonographic correlate. COMPARISON: Mammography: Comparison is made with relevant prior exams. TECHNIQUE: Digital breast mammography with tomosynthesis is performed in both the craniocaudal and mediolateral oblique views along with computer-aided detection (CAD). FINDINGS: The breasts are heterogeneously dense, which may obscure small masses. Left: Asymmetry in the lateral left breast posterior depth on CC view is less conspicuous compared with prior. No prior sonographic correlate was seen. Left marker clip. No suspicious calcifications or other abnormal findings. Right: No suspicious masses calcifications or other abnormal findings. Results are provided to the patient at time of visit by the technologist. MM/MM tomosynthesis diagnostic BI IMPRESSION: Right: Negative. Left: Asymmetry lateral left breast posterior depth on CC view less conspicuous compared with priors and without prior sonographic correlate. Recommend follow-up diagnostic mammogram in one year to demonstrate 2 years of stability. ASSESSMENT: BI-RADS Category 3: Probably benign RECOMMENDATION: 12 month diagnostic follow up This patient's information was entered into a reminder system with a target due date for their next mammogram. Electronically signed by: Nunu Mckinley DO 03/19/2025 12:29 PM EDT Dictated By: Nunu Mckinley DO Signed By: <Electronically signed by Nunu Mckinley DO in OV> 03/19/25 1229 DD/ 1110 TD/TT: 03/19/25 1140 Hi Lo Driver: Procedure Note Donotuseinterpreter, Image - 03/19/2025 [facility] [address] [place] [address] Dr. [place], [place] [address] Mammography Report Signed Patient: Whit Chapman MMR#: [id number] : 1970Acct:[id number] Age/Sex: 54 / FADM Date: 03/19/25 Loc: HO.MAMMO Attending Dr: Benoit Lopez MD Ordering Physician: Benoit Lopez MDResults: 3Probably Benign Date of Service: 03/19/25Follow Up: 12 month diagnos tic follow up Procedure(s): MM tomosynthesis diagnostic BI Accession Number(s): [id number] cc: Name,Benoit ALMANZA Reason For Exam: LT BR 6MO F/U DENSITIES YEARLY EXAMINATION: MM DIAGNOSTIC DIGITAL BREAST TOMOSYNTHESIS, BILATERAL CLINICAL INFORMATION: 1 year follow-up for asymmetry in the lateral left breast posterior depth on CC view without sonographic correlate. COMPARISON: Mammography: Comparison is made with relevant prior exams. TECHNIQUE: Digital breast mammography with tomosynthesis is performed in both the craniocaudal and mediolateral oblique views along with computer-aided detection (CAD). FINDINGS: The breasts are heterogeneously dense, which may obscure small masses. Left: Asymmetry in the lateral left breast posterior depth on CC view is less conspicuous compared with prior. No prior sonographic correlate was seen. Left marker clip. No suspicious calcifications or other abnormal findings. Right: No suspicious masses calcifications or other abnormal findings. Results are provided to the patient at time of visit by the technologist. MM/MM tomosynthesis diagnostic BI IMPRESSION: Right: Negative. Left: Asymmetry lateral left breast posterior depth on CC view less conspicuous compared with priors and without prior sonographic correlate. Recommend follow-up diagnostic mammogram in one year to demonstrate 2 years of stability. ASSESSMENT: BI-RADS Category 3: Probably benign RECOMMENDATION: 12 month diagnostic follow up This patient's information was entered into a reminder system with a target due date for their next mammogram. Electronically signed by: Nunu Mckinley DO 03/19/2025 12:29 PM EDT Dictated By: Nunu Mckinley DO Signed By: <Electronically signed by Nunu Mckinley DO in OV> 03/19/25 1229 DD/ 1110 TD/TT: 03/19/25 1140 Hi Lo Driver: Benoit Lopez MD IMG BI PROCEDURES Final Result documented in this encounter Visit Diagnoses Not on filedocumented in this encounter Additional Health Concerns Assessment Noted Time PHQ-9 Depression Total Score: 1 07/09/20 25 11:38 AM EDT documented as of this encounter Care Teams Engagement Lead Relationship Specialty Start Date End Date Name, MD Benoit [address] [place] [address] PCP - General Family Medicine 05/22/18 documented as of this encounter
--- OUTSIDE RECORDS SUMMARY | 2025-03-19 13:49 | XMS_ITS | Encounter Summary ---
Author Organization [employer] Address [address] [place] [address] 7 [place] [address] Care Team Providers Care Shoe Repairman Name Role Phone Name, Benoit ALMANZA Primary Care Provider [phone] Encounter Details Date Type Department Care Team (Latest Contact Info) Description 03/19/2025 Travel Social History Tobacco Use Types Packs/Day Years [...] 03/26/2025 11:00 AM EST Telemedicine [facility] MEDICINE [address] [place] [address] documented as of this encounter Visit Diagnoses Not on filedocumented in this encounter Additional Health Concerns Assessment Noted Time PHQ-9 Depression Total Score: 1 11/28/19 25 11:38 AM EDT documented as of this encounter Care Teams Shoe Repairman Relationship Specialty Start Date End Date Name, MD Benoit [address] [place] [address] PCP - General Family Medicine 05/22/18 documented as of this encounter
--- OUTSIDE RECORDS SUMMARY | 2025-03-19 13:49 | XMS_ITS | Clinical Summary ---
Author Organization [employer] Address [address] [place] [address] 7 [place] [address] Care Team Providers Care Hospice Spiritual Care Coordinator Name Role Phone Name, Benoit ALMANZA Primary Care Provider [phone] Allergies No known active allergies Medications Tremfya 100 MG/ML injection 3 Active Blood Glucose Monitoring Suppl (FreeStyle Lite) device Inject 1 each under the skin Once daily. 1 each 3 Active fluticasone (Flonase) 50 MCG/ACT nasal spray Administer 2 sprays into each nostril in the morning. Shake gently. Before first use, prime pump. After use, clean tip and replace cap. 16 g 2 4 Active atorvastatin (Lipitor) 20 MG tabletIndicatio ns:High cholesterol Take 1 tablet (20 mg) by mouth Once per day. 90 tablet 2 5 Active metFORMIN (Glucophage) 500 MG tabletIndicatio ns:Controlled type 2 diabetes mellitus without complication, without long-term current use of insulin (HCC) Take 0.5 tablets (250 mg) by mouth with breakfast and with evening meal. 30 tablet 11 5 11/28/19 26 Active losartan (Cozaar) 25 MG tabletIndicatio ns:Hypertension , unspecified type Take 1 tablet (25 mg) by mouth Once per day. 30 tablet 11 5 03/17/20 26 Active baclofen (Lioresal) 10 MG tabletIndicatio ns:Low back pain at multiple sites TAKE 1 TABLET BY MOUTH TWICE A DAY 180 tablet 3 02/27/20 25 Discontin ued(Thera py completed ) Active Problems Problem Noted Date Diagnosed Date Hypertension 03/17/2025 Chronic constipation 11/27/2024 Diverticulosis 11/27/2024 Encounter for screening colonoscopy 11/27/2024 History of colonoscopy 11/27/2024 Poor historian 11/27/2024 Venous insufficiency 03/01/2023 Controlled type 2 diabetes m ellitus without complication, without long-term current use of insulin 03/01/2023 Immunosuppression 07/27/2022 Hepatitis C antibody positive in blood 3 Overview (07/27/2022): VL negative 2020 She does not have history of infection or treatment in the past Psoriasis 11/30/2016 History of hysterectomy 04/20/2016 Hypercholesterolemia 09/25/2015 Family history of BRCA gene positive 02/06/2013 Overview (11/27/2024): Patient tested negative 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 Ovaries are still in. Depression 12/02/2009 Resolved Problems Problem Noted Date Diagnosed Date Resolved Date Acute upper respiratory infection 08/24/2016 03/01/2023 Encounters Date Type Department Care Team Description 03/19/2025 Orders Only [facility] [address] [place] [phone] NameBenoit MD 03/19/2025 Travel 03/17/2025 Telephone [facility] [address] [place] [phone] Benoit Lopez MD 03/12/2025 10:30 AM EDT Telemedicine [address] [address] Vilma Nunez RN Hypertension, unspecified type (Primary Dx); Elevated blood pressure reading without diagnosis of hypertension 03/12/2025 Travel 02/26/2025 10:45 AM EDT Office Visit [address] [address] NameBenoit MD Controlled type 2 diabetes mellitus without complication, without long-term current use of insulin (HCC) (Primary Dx); Elevated blood pressure reading; Encounter for immunization 02/26/2025 Travel 02/25/2025 Telephone [facility] [address], [place] [phone] Constantin Guido MA chart prep 02/19/2025 Travel from Last 3 Months Immunizations Immunization Administration Dates Next Due Pneumococcal Conjugate PCV 20 02/26/2025 TD (adult), 2 Lf tetanus tox oid, [...] Sign Reading Time Taken Comments Blood Pressure 143/85 02/26/2025 11:14 AM EDT Pulse 75 02/26/2025 10:54 AM EDT Temperature 36.6 C (97.9 F) 02/26/2025 10:54 AM EDT Respiratory Rate 18 02/26/2025 10:54 AM EDT Oxygen Saturation 97% 02/26/2025 10:54 AM EDT Inhaled Oxygen Concentration - - Weight 87.2 kg (192 lb 3.2 oz) 02/26/2025 10:54 AM EDT Height 160 cm (5' 3 ) 02/26/2025 10:54 AM EDT Body Mass Index 34.05 02/26/2025 10:54 AM EDT Plan of Treatment Upcoming Encounters Date Type Department Care Team (Late st Contact Info) Description 03/26/2025 11:00 AM EST Telemedicine [facility] [address] [place] [address] Health Maintenance Due Date Last Done Comments CT Colonography 1972 FIT DNA/Cologuard 1972 FIT 1972 FOBT 1972 HIV Screening 1972 Sigmoidoscopy 1972 COVID-19 Vaccine (#1) 1977 Family Planning (PISQ) 1987 Hepatitis B Vaccines (1 of 3 - 19+ 3-dose series) 1991 Zoster Vaccines (1 of 2) 1991 Influenza Vaccine (#1) 2025 SDOH Screening 04/26/2025 04/26/2024 Diabetes: Hemoglobin A1C 08/27/2025 025, 01/31/2024, 01/31/2024, Additional history exists Diagnostic Breast Imaging 09/17/20252024, 09/18/2024, 03/13/2024, Additional history exists Mammogram 09/17/2025 03/19/2025, 08/22, 03/13/2024, Additional history exists Alcohol/Substance Use Screening 11/27/2025 11/27/2024 Depression Screening 11/27/2025 11/27/2024, 11/28/19 Lipid Panel 11/27/2025 11/27/2024, 01/20, 08/02/2023, Additional history exists Disability Screening 02/19/2026 02/19/2025 Diabetes: Foot Exam 02/26/2026 02/26/2025, 02/26/2025, 02/26/2025, Additional history exists Diabetes: Urine Protein Screening 02/26/2026 02/26/2025, 01/31/2024 Tobacco Screening 02/26/2026 02/26/2025 Eye Exam 04/15/2026 04/15/2024 DTaP/Tdap/Td Vaccines (3 - Td or Tdap) 08/03/2027 08/02/2017, 08/01/2007 Colonoscopy 01/02/2034 01/03/2024 Colorectal Cancer Screening 01/02/2034 RSV Patients and Patients Aged 60 years or older (1 - 1-dose 75+ series) 2047 Cervical Cancer Screening Discontinued HPV/Cotest Discontinued 12/08/2021, 06/0 01/2021, 11/14/2018, Additional history exists Pap Smear Discontinued 12/08/2021, 10/28/2020 Hepatitis C Screening Completed 11/30/2022, 021 Pneumococcal Vaccine: 50+ Years Completed 02/26/2025 HIB Vaccines Aged Out No longer eligi [...] patient's age to complete this topic Meningococcal B Vaccine Aged Out No l onger eligible based on patient's age to complete [...] TOMOSYNTHESIS BILATERAL Routine 03/19/2025 11:10 AM EDT ALBUMIN, RANDOM URINE W/CREATININE Routine 02/26/2025 12:10 PM EDT Controlled type 2 diabetes mellitus without complication, without long-term current use of insulin (HCC) BASIC METABOLIC PANEL Routine 02/26/2025 12:10 PM EDT Controlled type 2 diabetes mellitus without complication, without long-term current use of insulin (HCC) POCT GLYCATED HEMOGLOBIN, TOTAL Routine 02/26/2025 10:56 AM EDT Controlled type 2 diabetes mellitus without complication, without long-term current use of insulin (HCC) POCT GLUCOSE Routine 02/26/2025 10:56 AM EDT Controlled type 2 diabetes mellitus without complication, without long-term current use of insulin (HCC) LIPID PANEL, STANDARD Routine 11/27/2024 12:01 PM EDT High cholesterol Controlled type 2 diabetes mellitus without complication, without long-term current use of insulin (CMS/HCC) HM COLONOSCOPY Routine 01/03/2024 HEPATITIS C VIRAL RNA, QUANTITATIVE, REAL-TIME PCR Routine 11/30/2022 11:33 AM EDT THINPREP IMAGING PAP AND HPV MRNA E6/E7 WITH REFLEX TO HPV 16,18/45 Routine 12/08/2021 3:31 PM EDT from Last 3 Months or Most Recently Relevant to Health Maintenance Results * BI Mammogram Diagnostic Tomosynthesis Bilateral (03/19/2025 11:10 AM EDT) Anatomical Region Laterality Modality Breast Bilateral Mammography 03/19/2025 11:1 0 AM EDT Narrative 03/19/2025 12:32 PM EDT [facility] [address] [place], [place] [address] Mammography Report Signed Patient: Whit Chapman MR#: [id number] : 1970 Acct:[id number] Age/Sex: 54 / F ADM Date: 03/19/25 Loc: [facility] Attending Dr: Benoit Lopez MD Ordering Physician: Benoit Lopez MD Results: 3Probably Benign Date of Service: 03/19/25 Follow Up: 12 month diagnos tic follow up Procedure(s): MM tomosynthesis diagnostic BI Accession Number(s): [id number] cc: Name,Benoit ALMANZA Reason For Exam: LT [...] 03/19/25 1229 DD/ 1110 TD/TT: 03/19/25 1140 Manometer Technician: Procedure Note Donotuseinterpreter, Image - 03/19/2025 Cesia [facility] [address] [place] [address] Mammography Report Signed Patient: Whit Chapman MMR#: [id number] : 1970Acct:[id number] Age/Sex: 54 / FADM Date: 03/19/25 Loc: HO.MAMMO Attending Dr: Benoit Lopez MD Ordering Physician: Benoit Lopez MDResults: 3Probably Benign Date of Service: 03/19/25Follow Up: 12 month diagnos tic follow up Procedure(s): MM tomosynthesis diagnostic BI Accession Number(s): [id number] cc: Benoit Lopez MD Reason For Exam: LT BR 6MO F/U [...] DO 03/19/2025 12:29 PM EDT Dictated By: Tyminski,Nunu DO Signed By: <Electronically signed by Nunu Mckinley, DO in OV> 03/19/25 1229 DD/ 1110 TD/TT: 03/19/25 1140 Manometer Technician: us Benoit Lopez MD IMG BI PROCEDURES Final Result * Albumin, Random Urine W/Creatinine (02/26/2025 12:10 PM EDT) Creatinine, Urine 161.51 mg/dL [facility] Microalbumin Urine 7.0 mg/L [facility] Microalbum Creatinine Ratio Ur 4.3 <30 ug/mg cr [facility] Comment:Albumin/Creatinine R atio Reference Ranges: Normal: < 30 ug/mg creatinine Microalbuminuria: 30 - 300 ug/mg creatinineClinical Albuminuria: > 300 ug/mg creatinine Urine (Urine, Random) 02/26/2025 12:10 PM EDT 02/26/2025 1:15 PM EDT us Benoit Lopez MD LAB URINE ORDERABLES Final Resul t [facility] [address] [place] [address] [phone] * (ABNORMAL) Basic Metabolic Panel (02/26/2025 12:10 PM EDT) Sodium 141 135 - 145 mmol/L [facility] Potassium 3.8 3.3 - 5.1 mmol/L [facility] Chloride 106 96 - 108 mmol/L [facility] Carbon Dioxide 29 22 - 29 mmol/L [facility] Anion Gap 10(L) 12 - 20 [facility] Urea Nitrogen (BUN) 14 9 - 16 mg/dL [facility] Creatinine, Serum 0.57 0.5 - 1.4 mg/dL [facility] Estimated Glomerular Filt Rate >60 [facility] Comment:Chronic Kidney Disea se: Estimated GFR < 60 mL/min/1.10b8Vlzzns Kidney Disease: Estimated GFR < 15 mL/min/1.73m2 Glucose 134(H) 60 - 115 mg/dL [facility] Calcium 9.7 8.4 - 10.2 mg/dL [facility] Blood Venous blood specimen / Unknown 02/26/2025 12:10 PM EDT 02/26/2025 1:17 PM EDT us Benoit Lopez MD LAB BLOOD ORDERABLES Final Resul t [facility] [address] [place] [phone] * (ABNORMAL) POCT Hgb A1c (02/26/2025 10:56 AM EDT) Hemoglobin A1C 6.7(A) 4.0 - 5.7 % QC Media Lot # [id number] Lot# Expiration Date 41,627 Blood 02/26/2025 10:5 6 AM EDT us Benoit Lopez MD POINT OF CARE TEST ENTER/EDIT OR DERABLES Final Result * POCT Glucose (02/26/2025 10:56 AM EDT) Glucose Blood, POC 139 60 - 200 mg/dL QC Media Lot # [id number] Lot# Expiration Date 31,126 Blood Capillary blood specimen / Unknown 02/26/2025 10:56 AM EDT us Benoit Lopez MD POINT OF CARE TEST ENTER/EDIT OR DERABLES Final Result * (ABNORMAL) Lipid Panel, Standard (11/27/2024 12:01 PM EDT) Triglycerides 104 <150 mg/dL [facility] Comment:Desirable Triglyceri de: less than 150 mg/dLBorderline High Triglyceride 150-199 mg/dLHigh Triglyceride: 200-499 mg/dLVery High Triglyceride: greater than or equal to 5OO mg/dL Cholesterol 169 <200 mg/dL [facility] Comment:Desirable Cholestero l: less than 200 mg/dLBorderline High Cholesterol: 200-239 mg/dLHigh Cholesterol: greater than 239 mg/dL LDL Cholesterol Calculated 114(H) <100 mg/dL [facility] Comment:Desirable LDL: less than 100 mg/dLNear Optimal/Above Optimal LDL: 110- 129 mg/dLBorderline High LDL: 130-159 mg/dLHigh LDL: 160-189 mg/dLVery High LDL: greater than or equal to 190 mg/dL HDL Cholesterol 35(L) >40 mg/dL [facility] Comment:Desirable HDL: great er than 40 mg/dL Note: This HDL assay may give artificially low results in patients with liver disease. Blood Venous blood specimen / Unknown 11/27/2024 12:01 PM EDT 11/27/2024 4:25 PM EDT us Benoit Lopez MD LAB BLOOD ORDERABLES Final Resul t [facility] [address] [place] [phone] * Colonoscopy (01/03/2024) Colonoscopy Normal Normal us Benoit Lopez MD HEALTH MAINTENANCE Final Result * Hepatitis C Viral RNA, Quantitative, Real-Time PCR (11/30/2022 11:33 AM EDT) Hepatitis C Viral Load <15 NOT DETECTED NOT DETECTED IU/mL [facility] HCV Log PCR <1.18 NOT DETECTED NOT DETECTED Log IU/mL [facility] Comment:This test was perfor med using Real-Time Polymerase ChainReaction.Reportable Range: 15 IU/mL to 100,000,000 IU/mL(1.18 Log IU/mL to 8.00 Log IU/mL).The analytical performance characteristics of thisassay have been determined by [employer]The modifications have not been cleared or approved bythe FDA. This assay has been validated pursuant to theCLIA regulations and is used for clinical purposes.For more information on this test, go to:http://education.[employer].Facishare/faq/MHX36i9(This link is being provided for informational/educational purposes only.)THIS TEST WAS PERFORMED AT:[employer] [place] [phone] MULLINS MD 11/30/2022 11:3 3 AM EDT 11/30/2022 1:19 PM EDT [facility] External Provider LAB BLO OD ORDERABLES Final Result [facility] [address] [place] [address] [phone] * THINPREP TIS PAP AND HPV mRNA E6/E7 WITH REFLEX TO HPV 16,18/45 (12/08/2021 3:31 PM EDT) Clinical Information: None given [facility] COMMENT SEE COMMENT [facility] Comment: EXPLANATORY NOTE: The Pap is a screening test for cervical cancer. It is not a diagnostic test and is subject to false negative and false positive results. It is most reliable when a satisfactory sample, regularly obtained, is submitted with relevant clinical findings and history, and when the Pap result is evaluated along with historic and current clinical information. COMMENT: This Pap test has been evaluated with computer assisted technology. [facility] Cytotechnologis t: SEE COMMENT [facility] Comment: MAMIGUEL ANGEL Berger(ASCP) CT screening location: [address] [address] HPV nRNA E6/E7 Not Detected Not Detected [facility] Comment: Methodology: Examination Scorer-Mediated Amplification This assay detects E6/E7 viral messenger RNA (mRNA) from 14 high-risk HPV types (16,18,31,33,35,39,45,51,52,56,58,59,66,68). Cervical sources are required for HPV testing. If a vaginal source from a patient who has had a total hysterectomy with removal of cervix was submitted, please contact the testing laboratory for alternative testing options. For additional information, please refer to http://education.[employer]/faq/MJC753t7 (This link if provided for information/ educational purposes only.) Infection Shift in vaginal isiah suggestive of bacterial vaginosis. [facility] Interpretation/ Result: Negative for intraepithelial lesion or malignancy. [facility] LMP: NONE [facility] Prev. BX: NONE [facility] Prev. PAP: NONE [facility] Review Cytotechnologis t: SEE COMMENT [facility] Comment: MSM, CT(ASCP) CT screening location: [place] [address] SOURCE: None given [facility] Statement Of Adequacy: SEE COMMENT [facility] Comment: Satisfactory for evaluation. Endocervical/transformation zone component absent. Age and/or menstrual status not provided 12/08/2021 3:31 PM EDT Cheyenne Nguyen MD LAB PATHOLOGY ORDERAB LES Final Result [facility] [address] [place] [address], from Last 3 Months or Most Recently Relevant to Health Maintenance [place] [address] [place] [address] Care Teams Hospice Spiritual Care Coordinator Relationship Specialty Start Date End Date Name, MD Benoit [address] [place] [phone] PCP - General Family Medicine 05/22/18
== END 2025-03-19 10:57 | disposition home or self-care (01) ==
LOC: HO.MAMMO 10:56
PROVIDERS: PCP Internal Medicine Geriatric Medicine; Visit Provider Internal Medicine Geriatric Medicine
DX: R92.2 Inconclusive mammogram (principal)
CPT/HCPCS: 77062; 77066

== ENCOUNTER → 2025-03-19 11:00 | Outpatient (BNV) | payer OTHER, SELFPAY | PROVIDERS: PCP Internal Medicine Geriatric Medicine; Visit Provider Internal Medicine | DX: R92.8 Other abnormal and inconclusive findings on diagnostic imaging of breast (principal) | CPT/HCPCS: 77062; 77066 ==

== ENCOUNTER 2025-04-02 15:18 | Outpatient (REF) | payer OTHER, SELFPAY ==
[2025-04-02 18:23] LABS: Anion Gap 16 (12-20); Blood Urea Nitrogen 10 mg/dL (9-16); Calcium 9.6 mg/dL (8.4-10.2); Carbon Dioxide 23 mmol/L (22-29); Chloride 108 mmol/L (96-108); Estimated Glomerular Filt Rate > 60; Potassium 3.7 mmol/L (3.3-5.1); Sodium 143 mmol/L (135-145)
--- OUTSIDE RECORDS SUMMARY | 2025-04-02 18:33 | XMS_ITS | Clinical Summary ---
Author Organization [employer] Address [address] [place] [address] 7 [place] [address] Care Team Providers Care Suspender Maker Name Role Phone Name, Benoit ALMANZA Primary Care Provider [phone] Allergies No known active allergies Medications Tremfya [...] 2 4 Active atorvastatin (Lipitor) 20 MG tabletIndication s:High cholesterol Take 1 tablet (20 mg) by mouth Once per day. 90 tablet 2 5 Active metFORMIN (Glucophage) 500 MG tabletIndication s:Controlled type 2 diabetes mellitus without complication, without long-term current use of insulin (HCC) Take 0.5 tablets (250 mg) by mouth with breakfast and with evening meal. 30 tablet 11 5 11/28/19 26 Active losartan (Cozaar) 25 MG tabletIndication s:Hypertension, unspecified type Take 1 tablet (25 mg) by mouth Once per day. 30 tablet 11 5 03/17/20 26 Active Active Problems Problem Noted Date Diagnosed Date Hypertension 03/17/2025 Chronic constipation 11/27/2024 Diverticulosis 11/27/2024 Encounter for screening colonoscopy 11/27/2024 History of colonoscopy 11/27/2024 Poor historian 11/27/2024 Venous insufficiency 03/01/2023 Controlled type 2 diabetes m jatinder without complication, without long-term current use of insulin 03/01/2023 Immunosuppression 07/27/2022 Hepatitis C antibody positive in blood Overview (07/27/2022): VL negative 2020 She does [...] Encounters Date Type Department Care Team Description 03/26/2025 11:00 AM EST Telemedicine [facility] Tessie [place] [address] Vilma Nunez, RN Resistant hypertension 03/26/2025 Telephone [facility] [place] [address] Benoit Lopez MD 03/26/2025 Travel 03/19/2025 Orders Only [facility] [place] [address] Benoit Lopez MD 03/19/2025 Travel 03/17/2025 Telephone [facility] [place] [address] Benoit Lopez MD 03/12/2025 10:30 AM EDT Telemedicine [facility] [place] [address] Vilma Nunez, RN Hypertension, unspecified type (Primary Dx); Elevated blood pressure reading without diagnosis of hypertension 03/12/2025 Travel 02/26/2025 10:45 AM EDT Office Visit [facility] [place] [address] Benoit Lopez MD Controlled type 2 diabetes mellitus without complication, without long-term current use of insulin (HCC) (Primary Dx); Elevated blood pressure reading; Encounter for immunization 02/26/2025 Travel 02/25/2025 Telephone [facility] [address] [place] [phone] Morgan GuidooxanaTRACIE carter chart prep 02/19/2025 Travel from Last 3 [...] Care Team (Late st Contact Info) Description 04/09/2025 10:00 AM EST Telemedicine [facility] [address] [place] [address] Health Maintenance Due Date Last Done Comments CT Colonography 1972 FIT DNA/Cologuard 1972 FIT 1972 FOBT 1972 HIV Screening 1972 Sigmoidoscopy 1972 COVID-19 Vaccine (#1) 1977 Family Planning (PISQ) 1987 Hepatitis B Vaccines (1 of 3 - 19+ 3-dose series) 1991 Zoster Vaccines (1 of 2) 1991 RSV Patients and Patients Aged 60 years or older (1 - Risk 50-74 years 1-dose series) 2022 Influenza Vaccine (#1) 2025 SDOH Screening 04/26/2025 [...] Colonoscopy 01/02/2034 01/03/2024 Colorectal Cancer Screening 01/02/2034 Cervical Cancer Screening Discontinued HPV/Cotest Discontinued 12/08/2021, 0601/2021, 11/14/2018, Additional history exists Pap Smear Discontinued [...] Procedure Name Priority Date/Time Associated Diagnosis Comments BASIC METABOLIC PANEL Routine 04/02/2025 3:27 PM EST Hypertension, unspecified type BI MAMMOGRAM DIAGNOSTIC TOMOSYNTHESIS BILATERAL Routine 03/19/2025 [...] Recently Relevant to Health Maintenance Results * (ABNORMAL) Basic Metabolic Panel (04/02/2025 3:27 PM EST) Only the most recent of2 resultswithin the time period is included. Sodium 143 135 - 145 mmol/L [facility] Potassium 3.7 3.3 - 5.1 mmol/L [facility] Chloride 108 96 - 108 mmol/L [facility] Carbon Dioxide 23 22 - 29 mmol/L [facility] Anion Gap 16 12 - 20 [facility] Urea Nitrogen (BUN) 10 9 - 16 mg/dL [facility] Creatinine, Serum 0.64 0.5 - 1.4 mg/dL [facility] Estimated Glomerular Filt Rate >60 [facility] Comment:Chronic Kidney Disea se: Estimated GFR < 60 mL/min/1.01k3Egwcul Kidney Disease: Estimated GFR < 15 mL/min/1.73m2 Glucose 116(H) 60 - 115 mg/dL [facility] Calcium 9.6 8.4 - 10.2 mg/dL [facility] Blood Venous blood specimen / Unknown 04/02/2025 3:27 PM EST 04/02/2025 5:55 PM EST Benoit Lopez MD LAB BLOOD ORDERABLES Final Resul t [facility] [address] [place] [address] [phone] * BI Mammogram Diagnostic Tomosynthesis Bilateral (03/19/2025 11:10 AM EDT) Anatomical Region Laterality Modality Breast Bilateral Mammography 03/19/2025 11:1 0 AM EDT Narrative 03/19/2025 12:32 PM EDT [facility] [address] [place] [address] Mammography Report Signed Patient: Whit Chapman MR#: [id number] : 1970 Acct:[id number] Age/Sex: 54 / F ADM Date: 03/19/25 Loc: HO.MAMMO Attending Dr: Benoit Lopez MD Ordering Physician: Benoit Lopez MD Results: 3Probably Benign Date of Service: 03/19/25 Follow Up: 12 month diagnos tic follow up Procedure(s): MM tomosynthesis diagnostic BI Accession Number(s): [id number] cc: Name,Benoit ALMANZA Reason For Exam: LT [...] 03/19/25 1229 DD/ 1110 TD/TT: 03/19/25 1140 Mass Spectrometry Manager: Procedure Note Donotuseinterpreter, Image - 03/19/2025 [facility] [address] [place] [address] [place] [address] Mammography Report Signed Patient: Whit Chapman MMR#: [id number] : 1970Acct:[id number] Age/Sex: 54 / FADM Date: 03/19/25 Loc: HO.MAMMO Attending Dr: Benoit Lopez MD Ordering Physician: Name,Benoit MDResults: 3Probably Benign Date of Service: 03/19/25Follow Up: 12 month diagnos tic follow up Procedure(s): MM tomosynthesis diagnostic BI Accession Number(s): [id number] cc: Name,Benoit ALMANZA Reason For Exam: LT [...] 03/19/25 1229 DD/ 1110 TD/TT: 03/19/25 1140 Mass Spectrometry Manager: Benoit Lopez MD IMG BI PROCEDURES Final Result * Albumin, Random Urine W/Creatinine (02/26/2025 12:10 PM EDT) Creatinine, Urine 161.51 mg/dL [facility] Microalbumin Urine 7.0 mg/L [facility] Microalbum Creatinine Ratio Ur 4.3 <30 ug/mg cr [facility] Comment:Albumin/Creatinine R atio Reference Ranges: Normal: < 30 ug/mg creatinine Microalbuminuria: 30 - 300 ug/mg creatinineClinical Albuminuria: > 300 ug/mg creatinine Urine (Urine, Random) 02/26/2025 12:10 PM EDT 02/26/2025 1:15 PM EDT us Benoit Lopez MD LAB URINE ORDERABLES Final Resul t [facility] [address] [place] [phone] * (ABNORMAL) POCT Hgb A1c (02/26/2025 10:56 AM EDT) Hemoglobin A1C 6.7(A) 4.0 - 5.7 % QC Media Lot # [id number] Lot# Expiration Date [id number] Blood 02/26/2025 10:5 6 AM EDT Result Crissy Lopez MD POINT OF CARE TEST ENTER/EDIT [...] 12:01 PM EDT) Triglycerides 104 <150 mg/dL [facility] Comment:Desirable Triglyceri de: less than 150 mg/dLBorderline High Triglyceride 150-199 mg/dLHigh Triglyceride: 200-499 mg/dLVery High Triglyceride: greater than or equal to 5OO mg/dL Cholesterol 169 <200 mg/dL [facility] Comment:Desirable Cholestero l: less than 200 mg/dLBorderline High Cholesterol: 200-239 mg/dLHigh Cholesterol: greater than 239 mg/dL LDL Cholesterol Calculated 114(H) <100 mg/dL [facility] Comment:Desirable LDL: less than 100 mg/dLNear Optimal/Above Optimal LDL: 110- 129 mg/dLBorderline High LDL: 130-159 mg/dLHigh LDL: 160-189 mg/dLVery High LDL: greater than or equal to 190 mg/dL HDL Cholesterol 35(L) >40 mg/dL [facility] Comment:Desirable HDL: great er than 40 mg/dL Note: This HDL assay may give artificially low results in patients with liver disease. Blood Venous blood specimen / Unknown 11/27/2024 12:01 PM EDT 11/27/2024 4:25 PM EDT us Benoit Lopez MD LAB BLOOD ORDERABLES Final Resul t [facility] [address] [place] [phone] * Hm Colonoscopy (01/03/2024) Colonoscopy Normal Normal us Benoit Lopez MD HEALTH MAINTENANCE Final Result * Hepatitis C Viral RNA, Quantitative, Real-Time PCR (11/30/2022 11:33 AM EDT) Hepatitis C Viral Load <15 NOT DETECTED NOT DETECTED IU/mL [facility] HCV Log PCR <1.18 NOT DETECTED NOT DETECTED Log IU/mL [facility] Comment:This test was perfor med using Real-Time Polymerase ChainReaction.Reportable Range: 15 IU/mL to 100,000,000 IU/mL(1.18 Log IU/mL to 8.00 Log IU/mL).The analytical performance characteristics of thisassay have been determined by [employer].The modifications have not been cleared or approved bythe FDA. This assay has been validated pursuant to theCLIA regulations and is used for clinical purposes.For more information on this test, go to:http://education.WhoWantsMe.ffk environment/faq/GBP28b5(This link is being provided for informational/educational purposes only.)THIS TEST WAS PERFORMED AT:[employer] [address] [phone] MULLINS MD 11/30/2022 11:3 3 AM EDT 11/30/2022 1:19 PM EDT [facility] External Provider LAB BLO OD ORDERABLES Final Result [facility] [address] [place] [address] [phone] * THINPREP TIS PAP AND HPV [...] has been evaluated with computer assisted technology. [facility] Cytotechnologis t: SEE COMMENT [facility] Comment: MIGUEL ANGEL COTTER(ASCP) CT screening location: [address] [address] HPV nRNA E6/E7 Not Detected Not Detected [facility] Comment: Methodology: District Director-Mediated Amplification This assay detects E6/E7 viral messenger RNA (mRNA) from 14 high-risk HPV types (16,18,31,33,35,39,45,51,52,56,58,59,66,68). Cervical sources are required for HPV testing. If a vaginal source from a patient who has had a total hysterectomy with removal of cervix was submitted, please contact the testing laboratory for alternative testing options. For additional information, please refer to http://education.EDMdesigner/faq/RBT807w4 (This link if provided for information/ educational purposes only.) Infection Shift in vaginal isiah suggestive of bacterial vaginosis. [facility] Interpretation/ Result: Negative for intraepithelial lesion or malignancy. [facility] LMP: NONE GIVEN [facility] Prev. BX: NONE GIVEN [facility] Prev. PAP: NONE GIVEN [facility] Review Cytotechnologis t: SEE COMMENT [facility] Comment: MSM, CT(ASCP) CT screening location: [place] [address] SOURCE: None given [facility] Statement Of Adequacy: SEE COMMENT [facility] Comment: Satisfactory for evaluation. Endocervical/transformation zone component absent. Age and/or menstrual status not provided 12/08/2021 3:31 PM EDT Cheyenne Nguyen MD LAB PATHOLOGY ORDERAB LES Final Result [facility] [address] from Last 3 Months or Most Recently Relevant to Health Maintenance Insurance [place] [address] [place] [address] Care Teams Suspender Maker Relationship Specialty Start Date End Date Name, MD Benoit [address] [place] [phone] PCP - General Family Medicine 05/22/18
--- OUTSIDE RECORDS SUMMARY | 2025-04-02 18:33 | XMS_ITS | Encounter Summary ---
Author Organization [employer] Address [address] [place] [address] [place] [address] Care Team Providers Care Dry Kiln Feeder Name Role Phone Name, Benoit ALMANZA Primary Care Provider [phone] Encounter Details Date Type Department Care Team ([facility] Contact Info) Description 02/19/2024 Telephone [facility] [address] [place], [place] [phone] Name, MD Benoit [address] [place] [address] Social History Tobacco Use Types Packs/Day Years [...] Info) Description 04/09/2025 10:00 AM EST Telemedicine [facility] [address] [place] [address] documented as of this encounter Visit Diagnoses Not on filedocumented in this encounter Additional Health Concerns Assessment Noted Time PHQ-9 Depression Total Score: 0 12/01/19 23 10:46 AM EDT documented as of this encounter Care Teams Dry Kiln Feeder Relationship Specialty Start Date End Date Name, MD Benoit [address] [place] [address] PCP - General Family Medicine 05/22/18 documented as of this encounter
--- OUTSIDE RECORDS SUMMARY | 2025-04-02 18:33 | XMS_ITS | Encounter Summary ---
Author Organization [employer] Address [address] [place] [address] [place] [address] Care Team Providers Care Cloth Laminating Supervisor Name Role Phone Name, Benoit ALMANZA Primary Care Provider [phone] Encounter Details Date Type Department Care Team (Late st Contact Info) Description 06/07/2022 Orders Only [facility] [address] [place] [phone] Anais Dia LPN Social History Tobacco Use [...] Info) Description 04/09/2025 10:00 AM EST Telemedicine [facility] [address] [place] [phone] documented as of this encounter Procedures Procedure [...] Load <15 NOT DETECTED NOT DETECTED IU/mL [facility] HCV Log PCR <1.18 NOT DETECTED NOT DETECTED Log IU/mL [facility] Comment:This test was perfor med using Real-Time Polymerase ChainReaction.Reportable Range: 15 IU/mL to 100,000,000 IU/mL(1.18 Log IU/mL to 8.00 Log IU/mL).The analytical performance characteristics of thisassay have been determined by [employer].The modifications have not been cleared or approved bythe FDA. This assay has been validated pursuant to theCLIA regulations and is used for clinical purposes.For more information on this test, go to:http://education.[employer]/faq/IMB82t8(This link is being provided for informational/educational purposes only.)THIS TEST WAS PERFORMED AT:[employer] [place] [phone] MULLINS MD 11/30/2022 11:3 3 AM EDT 11/30/2022 1:19 PM EDT [facility] External Provider LAB BLO OD ORDERABLES Final Result Performing Organization Address [facility]/ZIP Co de Phone Number [facility] [address] [place] [phone] * Hepatitis B surface antigen, EIA (11/30/2022 11:33 AM EDT) Hepatitis B Surface Ag Negative Negative [facility] 11/30/2022 11:3 3 AM EDT 11/30/2022 1:19 PM EDT [facility] External Provider LAB BLO OD ORDERABLES Final Result Performing Organization Address [facility]/ZIP Co de Phone Number [facility] [address] [place] [phone] * Comprehensive Metabolic Panel (11/30/2022 11:33 AM EDT) Sodium 139 135 - 145 mmol/L [facility] Potassium 3.9 3.3 - 5.1 mmol/L [facility] Chloride 105 96 - 108 mmol/L [facility] Carbon Dioxide 24 22 - 29 mmol/L [facility] Anion Gap 14 12 - 20 [facility] Urea Nitrogen (BUN) 10 9 - 16 mg/dL [facility] Creatinine, Serum 0.65 0.5 - 1.4 mg/dL [facility] Estimated Glomerular Filt Rate >60 [facility] Comment:NOTE: For -Am erican individuals, multiply the result by 1.210.Chronic Kidney Disease: Estimated GFR < 60 mL/min/1.06h2Ggeiko Kidney Disease: Estimated GFR < 15 mL/min/1.73m2 Glucose 101 60 - 115 mg/dL [facility] Calcium 9.5 8.4 - 10.2 mg/dL [facility] Bilirubin, Total 0.8 0.0 - 1.0 mg/dL [facility] Aspartate Amino Transferase 21 5 - 31 U/L [facility] Alanine Aminotransferase 22 0 - 31 U/L [facility] Total Protein 7.1 6.5 - 8.0 g/dL [facility] Albumin Level 4.0 3.5 - 5.0 g/dL [facility] Alkaline Phosphatase 86 39 - 117 U/L [facility] 11/30/2022 11:3 3 AM EDT 11/30/2022 1:19 PM EDT us [facility] External Provider LAB BLO OD ORDERABLES Final Result [facility] [address] [place] [phone] [phone] documented in this encounter Visit Diagnoses Not on filedocumented in this encounter Care Teams Cloth Laminating Supervisor Relationship Specialty Start Date End Date Name, MD Benoit [address] [place] [address] PCP - General Family Medicine 05/22/18 documented as of this encounter
== END 2025-04-02 15:19 | disposition home or self-care (01) ==
LOC: HO.HHCL 15:18
PROVIDERS: PCP Internal Medicine Geriatric Medicine; Visit Provider Internal Medicine Geriatric Medicine
DX: I10 Essential (primary) hypertension (principal)
CPT/HCPCS: 36415; 80048